=== PATIENT | male | born 1980 | race Caucasian/White ===

== ENCOUNTER 2016-10-08 08:32 | Emergency (ER) | payer OTHER ==
[~2016-10-08] VITALS: Ht 193 cm; Wt 90.7 kg
[~2016-10-08 08:32] MED LIST: ANTIVERT25 MG PO; KEPPRA 500 MG500 M1 PO; LISINOPRIL5 MG PO; MOBIC15 MG PO; PHENERGAN 25 MG25 M1 PO
[2016-10-08 09:27] LABS: ABSOLUTE NEUTROPHILS 9.2 thou/uL (1.4-8.2); BASOPHILS 0.5 % (0.0-2.0); EOSINOPHILS 0.2 % (0.0-3.0); HEMATOCRIT 46.3 % (42.0-52.0); HEMOGLOBIN 16.1 gm/dL (14.0-18.0); LYMPHOCYTES 19.4 % (24.0-44.0); MCH 32.4 pg (26.0-34.0); MCHC 34.8 g/dL (28.0-37.0); MONOCYTES 4.9 % (1.0-8.0); PLATELET COUNT 401 thou/uL (150-400); RBC 4.98 mil/uL (4.50-6.00); RDW 15.1 % (10.5-14.5); WBC 12.2 thou/uL (4.0-11.0)
[2016-10-08 09:33] LABS: MANUAL DIFF NO
[2016-10-08 09:35] LABS: CALCIUM 8.4 mg/dL (8.5-10.1); CREATININE 0.8 mg/dL (0.7-1.3); POTASSIUM 3.5 mmol/L (3.5-5.1)
== END 2016-10-08 10:03 | disposition home or self-care (01) ==
LOC: ER 08:32
PROVIDERS: Emergency Medicine
DX: R56.9 Unspecified convulsions (principal); S00.81XA Abrasion of other part of head, initial encounter; I10 Essential (primary) hypertension; J44.9 Chronic obstructive pulmonary disease, unspecified; F41.9 Anxiety disorder, unspecified; F17.210 Nicotine dependence, cigarettes, uncomplicated; W19.XXXA Unspecified fall, initial encounter; Y93.89 Activity, other specified; Y92.89 Other specified places as the place of occurrence of the external cause; Y99.8 Other external cause status

== ENCOUNTER 2017-05-13 18:33 | Emergency (ER) | payer OTHER ==
[~2017-05-13] VITALS: Ht 193 cm; Wt 90.7 kg
--- NOTE | ~2017-05-13 | EKG ---
[place] [address] [facility] [address] [place] [address] ELECTROCARDIOGRAM REPORT Name: BHAVNA STRONG Room #: [facility] Derek#: [id number] Admission: 05/13/17 Attend Phys: Discharge: 05/13/17 Date of : 84 Report #: [id number] THIS REPORT FOR: //name// [facility] ED Test Date: 2017-05-13 Test Time: 18:40:16 Pat Name: BHAVNA STRONG Department: Room: Gender: Resident Service Coordinator: MZOOK : 1980 Requested By: Tressa Moreno Order Number: [id number] MD: Javier Cheema Measurements Intervals [place] Rate: 110 P: 77 [place]: 172 QRS: 85 QRSD: 84 T: 73 QT: 325 QTc: 440 Interpretive Statements Sinus tachycardia Right atrial enlargement Borderline T wave abnormalities Compared to ECG 03/04/2016 15:58:33 T-wave abnormality now present Electronically Signed On 05-14-2017 9:10:54 WARP BLEACHING VAT TENDER by Javier Cheema [email or web address] <ELECTRONICALLY SIGNED> By: Javier Cheema MD, [facility] 05/14/17 0910 1840 39 Javier Cheema MD, FACC /EPI
[2017-05-13 19:23] LABS: ABSOLUTE NEUTROPHILS 7.3 thou/uL (1.4-8.2); BASOPHILS 0.5 % (0.0-2.0); EOSINOPHILS 0.9 % (0.0-3.0); HEMATOCRIT 47.7 % (42.0-52.0); HEMOGLOBIN 16.6 gm/dL (14.0-18.0); LYMPHOCYTES 33.5 % (24.0-44.0); MCH 32.1 pg (26.0-34.0); MCHC 34.7 g/dL (28.0-37.0); MCV 92.3 fL (80.0-100.0); MONOCYTES 7.6 % (1.0-8.0); PLATELET COUNT 212 thou/uL (150-400); POLYS 57.5 % (36.0-66.0); RBC 5.17 mil/uL (4.50-6.00); RDW 12.5 % (10.5-14.5); WBC 12.6 thou/uL (4.0-11.0)
[2017-05-13 19:24] LABS: MANUAL DIFF NO
[2017-05-13 19:33] LABS: ANION GAP 15 mmol/L (7-16); BUN 13 mg/dL (7-18); CALCIUM 9.2 mg/dL (8.5-10.1); CHLORIDE 101 mmol/L (98-107); CO2 22 mmol/L (21-32); CREATININE 1.1 mg/dL (0.7-1.3); GLUCOSE 73 mg/dL (74-106); POTASSIUM 3.9 mmol/L (3.5-5.1); SODIUM 138 mmol/L (136-145)
[2017-05-13 19:41] LABS: ALBUMIN 4.2 g/dL (3.4-5.0); ALKALINE PHOSPHATASE 65 U/L (46-116); SGOT 22 U/L (15-37); SGPT 26 U/L (30-65); TOTAL BILIRUBIN 0.6 mg/dL (<0.1-1.0); TOTAL PROTEIN 7.7 g/dL (6.4-8.2); TROPONIN-I < 0.04 ng/mL (<0.06)
[2017-05-13] MEDS ORDERED: PREDNISONE 20 M20 MG PO (21:24)
== END 2017-05-13 21:40 | disposition home or self-care (01) ==
LOC: ER 18:33
PROVIDERS: Physician Assistant
DX: J44.1 Chronic obstructive pulmonary disease with (acute) exacerbation (principal); I95.1 Orthostatic hypotension; I10 Essential (primary) hypertension; F41.9 Anxiety disorder, unspecified; F17.210 Nicotine dependence, cigarettes, uncomplicated

== ENCOUNTER 2017-09-16 11:26 | Emergency (ER) | payer OTHER ==
[~2017-09-16] VITALS: Ht 193 cm; Wt 85.3 kg
--- NOTE | ~2017-09-16 | EKG ---
[place] [address] [facility] [place] [address] ELECTROCARDIOGRAM REPORT Name: BHAVNA STRONG Room #: DEP Derek#: [id number] Admission: 09/16/17 Attend Phys: Discharge: 09/16/17 Date of : 84 Report #: [id number] THIS REPORT FOR: //name// [facility] Test Date: 2017-09-16 Test Time: 11:33:37 Pat Name: BHAVNA STRONG Department: Room: Gender: Bridge Rigger: 12 : 1980 Requested By: Kim Valdes Order Number: [id number] MD: Javier Cheema Measurements Intervals [place] Rate: 105 P: 85 MD: 198 QRS: 86 QRSD: 86 T: 80 QT: 339 QTc: 449 Interpretive Statements Sinus tachycardia Baseline wander in lead(s) V2 Compared to ECG 05/13/2017 18:40:16 T-wave abnormality no longer present Electronically Signed On 09-17-2017 8:31:07 CDT by Javier Cheema [email or web address] <ELECTRONICALLY SIGNED> By: Javier Cheema MD, [facility] 09/17/17 0831 D: 04/1132 113 Javier Cheema MD, FACC /EPI
[~2017-09-16 11:26] MED LIST changes: +PREDNISONE 20 M20 MG PO
[2017-09-16 12:03] LABS: ABSOLUTE NEUTROPHILS 4.2 thou/uL (1.4-8.2); BASOPHILS 0.4 % (0.0-2.0); EOSINOPHILS 1.3 % (0.0-3.0); HEMATOCRIT 45.6 % (42.0-52.0); HEMOGLOBIN 15.8 gm/dL (14.0-18.0); LYMPHOCYTES 35.4 % (24.0-44.0); MCH 30.3 pg (26.0-34.0); MCHC 34.6 g/dL (28.0-37.0); MCV 87.6 fL (80.0-100.0); MONOCYTES 9.7 % (1.0-8.0); PLATELET COUNT 199 thou/uL (150-400); POLYS 53.2 % (36.0-66.0); RBC 5.21 mil/uL (4.50-6.00); RDW 12.9 % (10.5-14.5); WBC 7.9 thou/uL (4.0-11.0)
[2017-09-16 13:03] LABS: CALCIUM 8.9 mg/dL (8.5-10.1); CREATININE 1.2 mg/dL (0.7-1.3); POTASSIUM 4.2 mmol/L (3.5-5.1)
[2017-09-16] MEDS ORDERED: PREDNISONE 20 M20 MG PO (13:56)
[2017-09-16] MEDS ORDERED: ZPAK PO (13:56)
== END 2017-09-16 14:33 | disposition home or self-care (01) ==
LOC: ER 11:26
PROVIDERS: Emergency Medicine
DX: J44.1 Chronic obstructive pulmonary disease with (acute) exacerbation (principal); I10 Essential (primary) hypertension; F41.9 Anxiety disorder, unspecified; F17.210 Nicotine dependence, cigarettes, uncomplicated

== ENCOUNTER 2018-05-11 19:37 | Emergency (ER) | payer OTHER ==
[~2018-05-11] VITALS: Ht 193 cm; Wt 81.7 kg
[~2018-05-11 19:37] MED LIST changes: +CLARITIN10 MG PO; +NEURONTIN250 MG/5 M PO; +NORCO 5-325 TA1 EACH PO; +ZPAK PO
[2018-05-11 19:40] VITALS: BP 150/95
[2018-05-11] MEDS ORDERED: FLEXERIL PO (20:10)
[2018-05-11] MEDS ORDERED: IBUPROFEN 800800 M1 PO (20:10)
== END 2018-05-11 20:30 | disposition home or self-care (01) ==
LOC: ER 19:37
DX: S39.012A Strain of muscle, fascia and tendon of lower back, initial encounter (principal); I10 Essential (primary) hypertension; J44.9 Chronic obstructive pulmonary disease, unspecified; F41.9 Anxiety disorder, unspecified; F17.210 Nicotine dependence, cigarettes, uncomplicated; X58.XXXA Exposure to other specified factors, initial encounter; Y93.89 Activity, other specified; Y92.89 Other specified places as the place of occurrence of the external cause; Y99.8 Other external cause status

== ENCOUNTER 2019-01-02 19:22 | Emergency (ER) | payer OTHER ==
[~2019-01-02] VITALS: Ht 193 cm; Wt 83.9 kg
[~2019-01-02 19:22] MED LIST changes: +FLEXERIL PO; +IBUPROFEN 800800 M1 PO
[2019-01-02 19:53] LABS: EOSINOPHILS 0.8 % (0.0-3.0)
[2019-01-02 19:55] LABS: ABSOLUTE NEUTROPHILS 9.6 thou/uL (1.4-8.2); BASOPHILS 0.6 % (0.0-2.0); HEMATOCRIT 44.7 % (42.0-52.0); HEMOGLOBIN 15.7 gm/dL (14.0-18.0); LYMPHOCYTES 22.6 % (24.0-44.0); MCHC 35.2 g/dL (28.0-37.0); MCV 90.9 fL (80.0-100.0); RBC 4.92 mil/uL (4.50-6.00); RDW 13.6 % (10.5-14.5); WBC 16.3 thou/uL (4.0-11.0)
[2019-01-02 20:01] LABS: ANION GAP 11 mmol/L (7-16); BUN 15 mg/dL (7-18); CALCIUM 8.8 mg/dL (8.5-10.1); CHLORIDE 104 mmol/L (98-107); CO2 25 mmol/L (21-32); GLUCOSE 106 mg/dL (74-106); POTASSIUM 4.3 mmol/L (3.5-5.1); SODIUM 140 mmol/L (136-145)
[2019-01-02 20:11] LABS: SGOT 13 U/L (15-37); SGPT 16 U/L (30-65); TOTAL BILIRUBIN 0.3 mg/dL (<0.1-1.0); TOTAL PROTEIN 7.3 g/dL (6.4-8.2); TROPONIN-I <0.06 ng/mL (<0.06)
[2019-01-02 20:15] LABS: PLATELET COUNT 127 thou/uL (150-400)
[2019-01-02] MEDS ORDERED: DOXYCYCLINE 10100 MG PO (21:21)
[2019-01-02] MEDS ORDERED: PREDNISONE 20 M20 MG PO ×2 (21:21→22:16)
[2019-01-02 22:15] VITALS: BP 117/88
[2019-01-02] MEDS ORDERED: LEVAQUIN 500 M500 M2 PO (22:16)
--- NOTE | 2019-01-03 08:25 | EKG ---
[place] [address] [facility] [place] [address] ELECTROCARDIOGRAM REPORT Name: BHAVNA STRONG Room #: [facility] MAE Reed#: [id number] Admission: 01/02/19 Attend Phys: Discharge: 01/02/19 Date of : 84 Report #: [id number] THIS REPORT FOR: //name// 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
== END 2019-01-02 22:27 | disposition home or self-care (01) ==
LOC: ER 19:22
PROVIDERS: Physician Assistant
DX: J44.1 Chronic obstructive pulmonary disease with (acute) exacerbation (principal); F17.210 Nicotine dependence, cigarettes, uncomplicated; I10 Essential (primary) hypertension; F41.9 Anxiety disorder, unspecified

== ENCOUNTER 2019-02-06 18:27 | Emergency (ER) | payer OTHER ==
[~2019-02-06] VITALS: Ht 193 cm; Wt 83.9 kg
[~2019-02-06 18:27] MED LIST changes: +DOXYCYCLINE 10100 MG PO; +LEVAQUIN 500 M500 M2 PO
[2019-02-06 18:58] LABS: BASOPHILS 0.5 % (0.0-2.0); EOSINOPHILS 0.5 % (0.0-3.0); HEMATOCRIT 46.4 % (42.0-52.0); HEMOGLOBIN 15.8 gm/dL (14.0-18.0); LYMPHOCYTES 18.7 % (24.0-44.0); MCH 31.6 pg (26.0-34.0); MCHC 34.1 g/dL (28.0-37.0); MCV 92.9 fL (80.0-100.0); PLATELET COUNT 223 thou/uL (150-400); POLYS 73.3 % (36.0-66.0); RDW 13.7 % (10.5-14.5); WBC 10.9 thou/uL (4.0-11.0)
[2019-02-06 19:12] LABS: ANION GAP 12 mmol/L (7-16); BUN 16 mg/dL (7-18); CALCIUM 9.4 mg/dL (8.5-10.1); CHLORIDE 103 mmol/L (98-107); CO2 25 mmol/L (21-32); CREATININE 1.2 mg/dL (0.7-1.3); GLUCOSE 98 mg/dL (74-106); POTASSIUM 4.2 mmol/L (3.5-5.1); SODIUM 140 mmol/L (136-145)
[2019-02-06 19:21] LABS: TROPONIN-I <0.06 ng/mL (<0.06)
[2019-02-06 19:21] LABS: BE(vivo) -0.6 mmol/L (-2 to +3); HCO3 21.9 mmol/L (22.0-26.0); PCO2 31.1 mmHg (35.0-45.0); PO2 95.3 mmHg (80.0-100.0); pH 7.466 (7.360-7.450); sO2 97.7 % (92.0-98.0)
[2019-02-06] MEDS ORDERED: PREDNISONE 20 M20 MG PO (20:05)
[2019-02-06 20:17] VITALS: BP 121/82
--- NOTE | 2019-02-07 13:04 | EKG ---
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: [facility] : 1980 Requested By: Zach Ruiz Order Number: [id number] MD: Javier Cheema Measurements Intervals [place] Rate: 115 P: 91 AR: 162 QRS: 85 QRSD: 83 T: 55 QT: 321 QTc: 444 Interpretive Statements Sinus tachycardia Poor R wave progression Compared to ECG 01/02/2019 19:37:29 No significant change was found Electronically Signed On 02-07-2019 13:04:19 CDT by Javier Cheema [email or web address] ��������������������������������������������� <ELECTRONICALLY SIGNED> ���������������������������������������� By: Javier Cheema MD, [facility] ��������������������������������������������� 02/07/19 1304 1827 26 Javier Cheema MD, FACC /EPI
== END 2019-02-06 20:18 | disposition home or self-care (01) ==
LOC: ER 18:27
PROVIDERS: Emergency Medicine
DX: J44.1 Chronic obstructive pulmonary disease with (acute) exacerbation (principal); I10 Essential (primary) hypertension; F41.9 Anxiety disorder, unspecified; F17.210 Nicotine dependence, cigarettes, uncomplicated

== ENCOUNTER 2019-04-12 09:27 | Emergency (ER) | payer OTHER ==
[~2019-04-12] VITALS: Ht 193 cm; Wt 83.9 kg
[2019-04-12] MEDS ORDERED: SEROQUEL200 MG PO (09:35)
[2019-04-12] MEDS ORDERED: TRAZODONE 150150 M1 PO (09:35)
[2019-04-12] MEDS ORDERED: SPIRIVA18 MCG INH (09:36)
[2019-04-12] MEDS ORDERED: PROAIR HFA8.5 GM INH (09:36)
[2019-04-12] MEDS ORDERED: ADVAIR 250-501 EACH INH (09:36)
[2019-04-12] MEDS ORDERED: COMBIVENT INH (09:36)
[2019-04-12 09:59] LABS: ABSOLUTE NEUTROPHILS 7.6 thou/uL (1.4-8.2); BASOPHILS 0.7 % (0.0-2.0); EOSINOPHILS 0.4 % (0.0-3.0); HEMATOCRIT 44.3 % (42.0-52.0); LYMPHOCYTES 17.9 % (24.0-44.0); MCH 31.2 pg (26.0-34.0); MCHC 33.9 g/dL (28.0-37.0); MCV 91.9 fL (80.0-100.0); MONOCYTES 5.7 % (1.0-8.0); PLATELET COUNT 210 thou/uL (150-400); POLYS 75.3 % (36.0-66.0); RBC 4.82 mil/uL (4.50-6.00); RDW 13.4 % (10.5-14.5); WBC 10.1 thou/uL (4.0-11.0)
[2019-04-12 10:08] LABS: ANION GAP 10 mmol/L (7-16); BUN 10 mg/dL (7-18); CALCIUM 9.5 mg/dL (8.5-10.1); CHLORIDE 101 mmol/L (98-107); CO2 25 mmol/L (21-32); GLUCOSE 90 mg/dL (74-106); POTASSIUM 4.1 mmol/L (3.5-5.1); SODIUM 136 mmol/L (136-145)
[2019-04-12 10:18] LABS: SGOT 15 U/L (15-37); SGPT 11 U/L (30-65); TOTAL BILIRUBIN 0.2 mg/dL (<0.1-1.0); TOTAL PROTEIN 7.4 g/dL (6.4-8.2); TROPONIN-I <0.06 ng/mL (<0.06)
[2019-04-12] MEDS ORDERED: PREDNISONE 10 M10 M1 PO (12:52)
[2019-04-12] MEDS ORDERED: LEVAQUIN 750 M750 MG PO (12:52)
[2019-04-12 13:14] VITALS: BP 118/70
== END 2019-04-12 13:14 | disposition home or self-care (01) ==
LOC: ER 09:27
PROVIDERS: Emergency Medicine
DX: J18.1 Lobar pneumonia, unspecified organism (principal); J44.9 Chronic obstructive pulmonary disease, unspecified; F41.9 Anxiety disorder, unspecified; I10 Essential (primary) hypertension; F17.210 Nicotine dependence, cigarettes, uncomplicated

== ENCOUNTER 2019-09-14 20:22 | Inpatient (IN) | payer OTHER ==
[~2019-09-14] VITALS: Ht 193 cm; Wt 83.9 kg
[~2019-09-14 20:22] MED LIST changes: +ADVAIR 250-501 EACH INH; +AZITHROMYCIN500 MG PO; +COMBIVENT INH; +LEVAQUIN 750 M750 MG PO; +OSELTAMIVIR PHO75 MG PO; +PREDNISONE 10 M10 M1 PO; +PROAIR HFA8.5 GM INH; +SEROQUEL200 MG PO; +SPIRIVA18 MCG INH; +TRAZODONE 150150 M1 PO
[2019-09-14 20:24] VITALS: BP 145/91
[2019-09-14] MEDS ORDERED: AUGMENTIN 500-1 EACH PO (20:31)
[2019-09-14 21:24] LABS: BASOPHILS 0.5 % (0.0-2.0); EOSINOPHILS 0.2 % (0.0-3.0); HEMATOCRIT 47.2 % (42.0-52.0); LYMPHOCYTES 11.1 % (24.0-44.0); MCH 31.1 pg (26.0-34.0); MCV 91.7 fL (80.0-100.0); MONOCYTES 5.3 % (1.0-8.0); PLATELET COUNT 257 thou/uL (150-400); POLYS 82.9 % (36.0-66.0); RBC 5.14 mil/uL (4.50-6.00); RDW 13.8 % (10.5-14.5); WBC 19.3 thou/uL (4.0-11.0)
[2019-09-14 21:28] LABS: ANION GAP 15 mmol/L (7-16); BUN 10 mg/dL (7-18); CALCIUM 8.8 mg/dL (8.5-10.1); CHLORIDE 101 mmol/L (98-107); CO2 21 mmol/L (21-32); GLUCOSE 105 mg/dL (74-106); POTASSIUM 3.7 mmol/L (3.5-5.1); SODIUM 137 mmol/L (136-145)
[2019-09-14 21:38] LABS: ALBUMIN 4.5 g/dL (3.4-5.0); SGOT 16 U/L (15-37); SGPT 16 U/L (30-65); TOTAL BILIRUBIN 0.9 mg/dL (<0.1-1.0); TOTAL PROTEIN 7.9 g/dL (6.4-8.2); TROPONIN-I <0.06 ng/mL (<0.06)
[2019-09-14 23:49] VITALS: BP 110/68
[2019-09-15 00:15] VITALS: BP 124/78
[2019-09-15 00:44] VITALS: BP 110/73
[2019-09-15 03:48] VITALS: BP 104/64
[2019-09-15 06:12] LABS: HEMATOCRIT 42.4 % (42.0-52.0); HEMOGLOBIN 14.4 gm/dL (14.0-18.0); MCH 31.3 pg (26.0-34.0); MCHC 33.9 g/dL (28.0-37.0); MCV 92.3 fL (80.0-100.0); RBC 4.59 mil/uL (4.50-6.00); RDW 14.3 % (10.5-14.5); WBC 15.5 thou/uL (4.0-11.0)
[2019-09-15 08:52] VITALS: BP 121/82
[2019-09-15 10:59] LABS: CALCIUM 7.8 mg/dL (8.5-10.1); CREATININE 0.9 mg/dL (0.7-1.3); POTASSIUM 4.2 mmol/L (3.5-5.1)
[2019-09-15 14:06] VITALS: BP 128/77
--- NOTE | 2019-09-16 11:48 | EKG ---
[facility] [address] ELECTROCARDIOGRAM REPORT Name: BHAVNA STRONG Room #: 349-I [facility] IN M.R.#: [id number] Admission: 09/14/19 Attend Phys: Thien Singh Discharge: 09/15/19 Date of : 84 Report #: [id number] THIS REPORT FOR: cc: FAM - No family physician/PCP FAM - No family physician/PCP Germán Ortiz MD ~ THIS REPORT FOR: //name// [facility] ED Test Date: 2019-09-14 Test Time: 20:38:40 Pat Name: BHAVNA STRONG Department: Room: [facility] Gender: M Log Data Technician: ALBA : 1980 Requested By: Shahriar Pickett Order Number: [id number] MD: Germán Ortiz Measurements Intervals [place] Rate: 138 P: 88 WA: 145 QRS: 89 QRSD: 95 T: -87 QT: 322 QTc: 488 Interpretive Statements Sinus tachycardia Consider right atrial enlargement Low voltage, precordial leads Borderline repolarization abnormality Compared to ECG 06/14/2019 13:13:32 Low QRS voltage now present Poor R-wave progression no longer present Electronically Signed On 09-16-2019 11:47:15 CDT by Germán Ortiz [email or web address] <ELECTRONICALLY SIGNED> By: Germán Ortiz MD 09/16/19 1147 37 37 Germán Ortiz MD /EPI
== END 2019-09-15 17:44 | disposition left against medical advice (07) | DRG 190 ==
LOC: ER 20:22 → 3W 23:36 → EROBS 23:36 → 3W 09-15 00:17
PROVIDERS: Emergency Medicine; Nurse Practitioner Family; ADMIT Hospitalist
DX: J44.1 Chronic obstructive pulmonary disease with (acute) exacerbation (principal); J96.01 Acute respiratory failure with hypoxia; F10.231 Alcohol dependence with withdrawal delirium; R65.10 Systemic inflammatory response syndrome (SIRS) of non-infectious origin without acute organ dysfunction; F41.9 Anxiety disorder, unspecified; E88.01 Alpha-1-antitrypsin deficiency; F32.9 Major depressive disorder, single episode, unspecified; I10 Essential (primary) hypertension; F17.210 Nicotine dependence, cigarettes, uncomplicated; Z20.828 Contact with and (suspected) exposure to other viral communicable diseases; Z79.899 Other long term (current) drug therapy

== ENCOUNTER 2020-01-30 21:02 | Emergency (ER) | payer OTHER ==
[~2020-01-30] VITALS: Ht 193 cm; Wt 88.5 kg
--- NOTE | ~2020-01-30 | EMS ---
[facility] [address] [place] [address] EMS Patient Care Report Name: BHAVNA STRONG Room #: DEP MAE Reed#: [id number] Admission: 01/30/20 Attend Phys: Discharge: 01/31/20 Date of : 84 Report #: [id number] THIS REPORT FOR: //name// Report Transmitted: 01/31/2020 05:07 EMS Care Summary [place], [place] Incident [id number] @ 01/30/2020 20:31 Incident Location [address] [place] [address] Patient BHAVNA STRONG Male, 39 Years 1980 Patient Address [address] [place] [address] Patient History Chronic Obstructive Pulmonary Disease (COPD),Gastro-Esophageal Reflux Disease (GERD), Patient Allergies No known allergies, Patient Medications Spiriva, Chief Complaint Right flank pain Disposition Transported No Lights/[place] Dispatch Reason Back Pain (Non-Traumatic) Transported To [facility] Narrative Called for back pain. Upon arrival, P30 on the scene. Pt was BURK x 3 sitting in his chair with a breathing tx going for his COPD. He said he has right flank pain that started earlier today and is getting worse. He had collected a [facility] [address] [place] [address] EMS Patient Care Report Name: BHAVNA STRONG Room #: DEP Derek#: [id number] Admission: 01/30/20 Attend Phys: Discharge: 01/31/20 Date of : 84 Report #: [id number] urine sample and it was brown in color. He requested transport to [facility] ER for further eval & tx. He was assisted to the EMS cot and loaded into the ambulance w/o incident. O2 cont. Vitals obtained x 2. En route: no changes. RR to ER. Arrived: pt taken to ER HW bed and moved w/o incident. Pt care & report to ER staff. Initial Vitals @20:49P: 92,R: 28,BP: 141/88,Pain: 10/10,GCS: 15,CO: 3,SpO2: 96,Revised Trauma: 12, @20:45P: 108,R: 24,BP: 133/88,Pain: 10/10,GCS: 15,SpO2: 94,Revised Trauma: 12, Assessments @20:39MENTAL:SKIN:HEENT:LUNG SOUNDS:ABDOMEN:PELVIS//GI:EXTREMITIES:PULSE:NEURO: Impression Back Pain Procedures @20:51StretcherResponse: Unchanged@20:39ALS AssessmentResponse: UnchangedSucceeded@PTAOxygen FlowRate: 3 Device: Nasal Cannula (NC) Response: UnchangedSucceeded Timeline BEEF SKINNER,Oxygen FlowRate: 3 Device: Nasal Cannula (NC) Response: UnchangedSucceeded, 20:28,Call Received 20:28,Dispatch Notified 20:31,Dispatched 20:32,En Route 20:38,On Scene 20:39,At Patient 20:39,ALS Assessment,Response: UnchangedSucceeded, 20:45,BP: 133/88 M,PULSE: 108,RR: 24 R,SPO2: 94 Ox,ETCO2: ,BG: ,PAIN: 10,GCS: 15, 20:45,Depart Scene 20:49,BP: 141/88 M,PULSE: 92,RR: 28 R,SPO2: 96 Ox,ETCO2: ,BG: ,PAIN: 10,GCS: 15, 20:51,Stretcher,Response: Unchanged 20:57,At Destination 21:11,Call Closed Disclaimer v1.1 Copyright 2020 [employer] This EMS Care Summary contains data elements from the applicable legal record (which may be displayed differently). It is designed to provide pertinent information for the following purposes: continuity of care, clinical quality, [address] [address] EMS Patient Care Report Name: BHAVNA STRONG Room #: DEP Derek#: [id number] Admission: 01/30/20 Attend Phys: Discharge: 01/31/20 Date of : 84 Report #: [id number] and state data reporting. The complete legal record is available to ED staff and administrators of the receiving hospital in ES's Patient Tracker. All data is provided "as is."
[~2020-01-30 21:02] MED LIST changes: +AUGMENTIN 500-1 EACH PO
[2020-01-30 21:41] LABS: ABSOLUTE NEUTROPHILS 9.7 thou/uL (1.4-8.2); BASOPHILS 0.6 % (0.0-2.0); EOSINOPHILS 0.1 % (0.0-3.0); HEMATOCRIT 44.5 % (42.0-52.0); HEMOGLOBIN 15.6 gm/dL (14.0-18.0); LYMPHOCYTES 19.7 % (24.0-44.0); MCHC 35.2 g/dL (28.0-37.0); MCV 91.1 fL (80.0-100.0); MONOCYTES 7.8 % (1.0-8.0); PLATELET COUNT 257 thou/uL (150-400); POLYS 71.8 % (36.0-66.0); RBC 4.88 mil/uL (4.50-6.00); RDW 14.1 % (10.5-14.5); WBC 13.4 thou/uL (4.0-11.0)
[2020-01-30 21:44] LABS: CALCIUM 8.6 mg/dL (8.5-10.1); CREATININE 1.2 mg/dL (0.7-1.3); POTASSIUM 3.7 mmol/L (3.5-5.1)
[2020-01-30 21:50] LABS: TOTAL BILIRUBIN 0.3 mg/dL (0.2-1.0); TOTAL PROTEIN 7.4 g/dL (6.4-8.2)
[2020-01-30] MEDS ORDERED: WIXELA 250-501 EACH INH (22:54)
[2020-01-30] MEDS ORDERED: PREDNISONE 5 MG5 M1 PO (22:56)
[2020-01-31 00:59] LABS: URINE BILIRUBIN NEGATIVE (Negative); URINE BLOOD 3+ (Negative); URINE CLARITY CLEAR; URINE COLOR YELLOW; URINE GLUCOSE-RANDOM* NEGATIVE (Negative); URINE KETONES NEGATIVE (Negative); URINE LEUKOCYTES-REFLEX NEGATIVE (Negative); URINE NITRITE-REFLEX NEGATIVE (Negative); URINE PROTEIN (DIPSTICK) NEGATIVE (Negative); URINE UROBILINOGEN 0.2 E.U./dl (0.2-1.0)
[2020-01-31] MEDS ORDERED: PERCOCET 5-3251 EACH PO (01:02)
[2020-01-31] MEDS ORDERED: ZOFRAN ODT4 MG PO (01:02)
[2020-01-31 01:07] LABS: BACTERIA-REFLEX 1-9 Few /HPF (None Seen); CASTS None Seen /LPF (None Seen); CRYSTALS None Seen /LPF (None Seen); MUCUS 0-3 Light strn/LPF (None Seen); SQUAMOUS 0-3 Few /LPF (0-3); URINE WBC-REFLEX 0-5 Rare /HPF (0-5)
[2020-01-31 01:15] VITALS: BP 107/79
== END 2020-01-31 01:16 | disposition home or self-care (01) ==
LOC: ER 21:02
PROVIDERS: Emergency Medicine
DX: N23 Unspecified renal colic (principal); F17.210 Nicotine dependence, cigarettes, uncomplicated; Z79.899 Other long term (current) drug therapy

== ENCOUNTER 2020-09-08 21:19 | Emergency (ER) | payer OTHER ==
[~2020-09-08] VITALS: Ht 193 cm; Wt 95.3 kg
[~2020-09-08 21:19] MED LIST changes: +PERCOCET 5-3251 EACH PO; +PREDNISONE 5 MG5 M1 PO; +WIXELA 250-501 EACH INH; +ZOFRAN ODT4 MG PO
[2020-09-08 21:22] VITALS: BP 169/108
[2020-09-08] MEDS ORDERED: CHANTIX0.5 MG PO (21:41)
[2020-09-08] MEDS ORDERED: ALPRAZOLAM1 MG PO (21:42)
[2020-09-08] MEDS ORDERED: HYDROXYZINE HCL50 MG PO (21:42)
[2020-09-08] MEDS ORDERED: XANAX1 MG PO (22:20)
== END 2020-09-08 22:39 | disposition home or self-care (01) ==
LOC: ER 21:19
DX: F41.9 Anxiety disorder, unspecified (principal); F32.9 Major depressive disorder, single episode, unspecified; J44.9 Chronic obstructive pulmonary disease, unspecified; I10 Essential (primary) hypertension; F17.210 Nicotine dependence, cigarettes, uncomplicated; Z87.442 Personal history of urinary calculi; Z79.899 Other long term (current) drug therapy

== ENCOUNTER 2020-11-07 09:30 | Emergency (ER) | payer OTHER ==
[~2020-11-07] VITALS: Ht 193 cm; Wt 90.7 kg
[~2020-11-07 09:30] MED LIST changes: +ALPRAZOLAM1 MG PO; +CHANTIX0.5 MG PO; +HYDROXYZINE HCL50 MG PO; +XANAX1 MG PO
[2020-11-07 10:02] LABS: ABSOLUTE NEUTROPHILS 8.6 thou/uL (1.4-8.2); BASOPHILS 0.4 % (0.0-2.0); EOSINOPHILS 0.5 % (0.0-3.0); HEMATOCRIT 51.2 % (42.0-52.0); HEMOGLOBIN 17.8 gm/dL (14.0-18.0); LYMPHOCYTES 18.3 % (24.0-44.0); MCH 30.8 pg (26.0-34.0); MCHC 34.7 g/dL (28.0-37.0); MCV 88.8 fL (80.0-100.0); MONOCYTES 9.4 % (1.0-8.0); PLATELET COUNT 283 thou/uL (150-400); POLYS 71.4 % (36.0-66.0); RBC 5.77 mil/uL (4.50-6.00); RDW 14.1 % (10.5-14.5)
[2020-11-07 10:15] LABS: CREATININE 1.1 mg/dL (0.7-1.3)
[2020-11-07 10:21] LABS: ALBUMIN 4.2 g/dL (3.4-5.0); TOTAL BILIRUBIN 0.5 mg/dL (0.2-1.0)
--- NOTE | 2020-11-07 10:27 | EKG ---
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 : 1980 Requested By: Berta Ch Order Number: [id number] MD: Yossi Tucker Measurements Intervals [place] Rate: 129 P: 79 TN: 154 QRS: 78 QRSD: 75 T: 8 QT: 331 QTc: 485 Interpretive Statements Sinus tachycardia Borderline repolarization abnormality Borderline prolonged QT interval Compared to ECG 09/14/2019 20:38:40 No significant changes Electronically Signed On 11-07-2020 10:27:36 CDT by Yossi Tucker [email or web address] <ELECTRONICALLY SIGNED> By: Yossi Tucker MD, [facility] 11/07/20 1027 0939 0939 Yossi Tucker MD, FACC /EPI
[2020-11-07] MEDS ORDERED: ZOFRAN ODT4 MG PO (13:36)
[2020-11-07] MEDS ORDERED: AZITHROMYCIN 2250 MG PO (13:36)
[2020-11-07] MEDS ORDERED: XANAX 1 MG TABLE1 MG PO (13:36)
[2020-11-07 14:14] VITALS: BP 149/104
== END 2020-11-07 14:15 | disposition home or self-care (01) ==
LOC: ER 09:30
PROVIDERS: Emergency Medicine
DX: J18.9 Pneumonia, unspecified organism (principal); F13.239 Sedative, hypnotic or anxiolytic dependence with withdrawal, unspecified; E86.0 Dehydration; R11.2 Nausea with vomiting, unspecified; I10 Essential (primary) hypertension; F32.9 Major depressive disorder, single episode, unspecified; F17.210 Nicotine dependence, cigarettes, uncomplicated; Z79.899 Other long term (current) drug therapy; Z87.442 Personal history of urinary calculi

== ENCOUNTER 2020-12-10 13:48 | Emergency (ER) | payer OTHER ==
[~2020-12-10] VITALS: Ht 193 cm; Wt 84.8 kg
[~2020-12-10 13:48] MED LIST changes: +AZITHROMYCIN 2250 MG PO; +XANAX 1 MG TABLE1 MG PO
[2020-12-10] MEDS ORDERED: ATIVAN1 M1 PO (15:34)
[2020-12-10] MEDS ORDERED: ALPRAZOLAM ER1 MG PO (15:36)
[2020-12-10 15:43] VITALS: BP 137/105
== END 2020-12-10 15:44 | disposition home or self-care (01) ==
LOC: ER 13:48
DX: F41.9 Anxiety disorder, unspecified (principal); J44.9 Chronic obstructive pulmonary disease, unspecified; F32.9 Major depressive disorder, single episode, unspecified; I10 Essential (primary) hypertension; F17.210 Nicotine dependence, cigarettes, uncomplicated; Z79.899 Other long term (current) drug therapy

== ENCOUNTER 2020-12-25 21:01 | Emergency (ER) | payer OTHER ==
[~2020-12-25] VITALS: Ht 193 cm; Wt 84.8 kg
[~2020-12-25 21:01] MED LIST changes: +ALPRAZOLAM ER1 MG PO; +ATIVAN1 M1 PO
[2020-12-25 21:05] VITALS: BP 146/94
== END 2020-12-25 21:26 | disposition home or self-care (01) ==
LOC: ER 21:01
DX: F41.9 Anxiety disorder, unspecified (principal); J44.9 Chronic obstructive pulmonary disease, unspecified; I10 Essential (primary) hypertension; F32.9 Major depressive disorder, single episode, unspecified; F17.210 Nicotine dependence, cigarettes, uncomplicated; Z79.891 Long term (current) use of opiate analgesic; Z79.899 Other long term (current) drug therapy

== ENCOUNTER 2021-01-02 19:18 | Inpatient (IN) | payer OTHER ==
[~2021-01-02] VITALS: Ht 193 cm; Wt 68.5 kg
--- NOTE | ~2021-01-02 | EMS ---
[place] [address] EMS Patient Care Report Name: BHAVNA STRONG Room #: 463-P ADM IN M.R.#: [id number] Admission: 01/02/21 Attend Phys: Joce Horton MD Discharge: Date of : 84 Report #: [id number] THIS REPORT FOR: //name// Report Transmitted: 01/04/2021 13:12 EMS Care Summary [place], [place]/[facility] Incident [id number] @ 01/02/2021 18:25 Incident Location [address] [place] [address] Patient SEAN STRONG Male, 40 Years 1980 Patient Address [address] [place], [place] [id number] Patient History Other,Chronic Obstructive Pulmonary Disease (COPD),Anxiety, Patient Allergies No known allergies, Patient Medications Ventolin, Other, Colace, Xanax, Chief Complaint SOA Disposition Transported No Lights/[place] Dispatch Reason Breathing Problem Transported To [facility] Narrative PT IS FOUND AT HOME W P30 ON SCENE. P30 INFORMS US THAT PT IS HAVING DIFFICULTY BREATHING AND HAS A PMH OF COPD. PT HAS BEEN HAVING DIFFICULTY ALL DAY. PT HAS TAKEN "THREE" BREATHING TREATMENTS WEIGHT SHIFTER. PT'S VITALS ARE ELEVATED. PT REQUESTS TRANSPORTATION TO [facility]. WE HELP PT ONTO COT AND SEAT BELT IN. [facility] [address] [place] [address] EMS Patient Care Report Name: BHAVNA STRONG Room #: 463-P ADM IN M.R.#: [id number] Admission: 01/02/21 Attend Phys: Joce Horton MD Discharge: Date of : 84 Report #: [id number] MOVE COT TO UNIT AND SECURE IN BACK. REASSESS PT STATUS AND VITALS. ADMINISTER 10LPM OF O2 VIA NRB. ATTACH BP CUFF, EKG AND PULSE OX TO PT. I GAIN IV ACCESS W 18 GAUGE SL IN LAC AND ACQUIRE D-STICK OFF OF IV. CONTINUE TO MONITOR PT STATUS AND VITALS EN ROUTE. TRANSFER OF CARE W RN AT [facility], PT STABLE PER VITALS. Initial Vitals @18:51P: 132,CO: 3,SpO2: 96, @18:59P: 137,BP: 125/93,SpO2: 95, @18:54P: 133,R: 24,BP: 138/100,Pain: 2/10,GCS: 15,Glucose: 100,SpO2: 94,Revised Trauma: 12, @18:44P: 137,R: 26,BP: 153/98,Pain: 2/10,GCS: 15,CO: 3,SpO2: 95,Revised Trauma: 12, Assessments @18:52MENTAL:Event Oriented,Place Oriented,Time Oriented,Person Oriented,SKIN:HEENT:Head/Face: No Abnormalities,Neck/Airway: No Abnormalities,LUNG SOUNDS:ABDOMEN:PELVIS//GI:EXTREMITIES:PULSE:NEURO:No Abnormalities, Impression Respiratory disorder Procedures @18:51Normal Saline (.9% NaCl) 10cc (18 ga) Site: Antecubital-LeftResponse: UnchangedSucceeded Timeline 18:24,Call Received 18:24,Dispatch Notified 18:25,Dispatched 18:26,En Route 18:39,On Scene 18:40,At Patient 18:44,BP: 153/98 M,PULSE: 137,RR: 26 R,SPO2: 95 Ox,ETCO2: ,BG: ,PAIN: 2,GCS: 15, 18:49,Depart Scene 18:51,BP: / M,PULSE: 132,RR: R,SPO2: 96 Ox,ETCO2: ,BG: ,PAIN: ,GCS: , 18:51,Normal Saline (.9% NaCl) 10cc 18 ga Site: Antecubital-Left,Response: UnchangedSucceeded, 18:54,BP: 138/100 M,PULSE: 133,RR: 24 R,SPO2: 94 Ox,ETCO2: ,B,PAIN: 2,GCS: 15, 18:59,BP: 125/93 M,PULSE: 137,RR: R,SPO2: 95 Ox,ETCO2: ,BG: ,PAIN: ,GCS: , 19:00,At Destination 19:27,Call Closed Disclaimer [address] [address] EMS Patient Care Report Name: BHAVNA STRONG Room #: 463-P ADM IN M.R.#: [id number] Admission: 01/02/21 Attend Phys: Joce Horton MD Discharge: Date of : 84 Report #: [id number] v1.1 Copyright 2020 [employer] This EMS Care Summary contains data elements from the applicable legal record (which may be displayed differently). It is designed to provide pertinent information for the following purposes: continuity of care, clinical quality, and state data reporting. The complete legal record is available to ED staff and administrators of the receiving hospital in [email or web address]'s Patient Tracker. All data is provided "as is."
[2021-01-02 19:21] VITALS: BP 145/101
[2021-01-02] MEDS ORDERED: FLUOXETINE HCL60 MG PO (19:27)
[2021-01-02] MEDS ORDERED: ZYPREXA 5 MG TAB5 M1 PO (19:27)
[2021-01-02] MEDS ORDERED: MONTELUKAST SODI4 M1 PO (19:28)
[2021-01-02 19:45] LABS: BE(vivo) -1.9 mmol/L (-2 to +3); HCO3 20.5 mmol/L (22.0-26.0); PCO2 29.8 mmHg (35.0-45.0); PO2 76.7 mmHg (80.0-100.0); pH 7.456 (7.360-7.450); sO2 96.1 % (92.0-98.0)
[2021-01-02 20:04] LABS: ABSOLUTE NEUTROPHILS 10.5 thou/uL (1.4-8.2); BASOPHILS 0.6 % (0.0-2.0); EOSINOPHILS 0.1 % (0.0-3.0); HEMATOCRIT 46.9 % (42.0-52.0); HEMOGLOBIN 16.2 gm/dL (14.0-18.0); LYMPHOCYTES 11.9 % (24.0-44.0); MCH 31.2 pg (26.0-34.0); MCHC 34.6 g/dL (28.0-37.0); MCV 90.1 fL (80.0-100.0); MONOCYTES 5.5 % (1.0-8.0); PLATELET COUNT 218 thou/uL (150-400); POLYS 81.9 % (36.0-66.0); RBC 5.21 mil/uL (4.50-6.00); RDW 14.2 % (10.5-14.5); WBC 12.9 thou/uL (4.0-11.0)
[2021-01-02 20:16] LABS: ANION GAP 13 mmol/L (7-16); BUN 7 mg/dL (7-18); CALCIUM 9.3 mg/dL (8.5-10.1); CHLORIDE 104 mmol/L (98-107); CO2 22 mmol/L (21-32); CREATININE 1.1 mg/dL (0.7-1.3); GLUCOSE 97 mg/dL (74-106); POTASSIUM 3.5 mmol/L (3.5-5.1); SODIUM 139 mmol/L (136-145)
[2021-01-02 20:27] LABS: ALBUMIN 4.2 g/dL (3.4-5.0); SGOT 13 U/L (15-37); SGPT 20 U/L (16-63); TOTAL BILIRUBIN 0.4 mg/dL (0.2-1.0); TOTAL PROTEIN 7.6 g/dL (6.4-8.2); TROPONIN-I <0.06 ng/mL (<0.06)
[2021-01-02] MEDS ORDERED: OMEPRAZOLE 20 M20 M1 PO (22:49)
[2021-01-02] MEDS ORDERED: LORAZEPAM 1 MG T1 MG PO (22:55)
[2021-01-03] VITALS (7 sets, daily range): BP systolic 102–150; BP diastolic 39–97
[2021-01-03] MEDS ORDERED: NICOTINE PATCH1 EAC2 TOP (00:48)
[2021-01-03] MEDS ORDERED: CHLORPROMAZINE100 MG PO (00:50)
[2021-01-03 04:04] LABS: CALCIUM 8.8 mg/dL (8.5-10.1)
[2021-01-03 04:06] LABS: POTASSIUM 4.9 mmol/L (3.5-5.1)
[2021-01-03 04:15] LABS: HEMATOCRIT 46.1 % (42.0-52.0); HEMOGLOBIN 15.7 gm/dL (14.0-18.0); MCV 91.2 fL (80.0-100.0); RBC 5.06 mil/uL (4.50-6.00); RDW 14.2 % (10.5-14.5); WBC 5.2 thou/uL (4.0-11.0)
--- NOTE | 2021-01-03 13:59 | EKG ---
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
--- NOTE | 2021-01-03 17:28 | NUR ---
Received pt from the ER, on 3L of O2 via NC. Alert and oriented x 4. states he gets anxious andthagt is his major problem along with his sob. Claims that he has stopped smoking for a while now and has been loosing weight since he has modified his diet. POC followed with no sings or verbalixations of distress will continue to monitor.
--- NOTE | 2021-01-04 06:31 | NUR ---
patient aox4 makes needs known. patient is on 3l of oxygen no soa or distress noted. patient had high anxiety prn ativan given per drRamona order. patient uses urinal at night. patient in bed asleep at this time breathing regular and unlaboured
[2021-01-04 07:55] VITALS: BP 131/89
[2021-01-04] MEDS ORDERED: DOXYCYCLINE 10100 M2 PO (09:49)
[2021-01-04] MEDS ORDERED: LORAZEPAM 1 MG T1 MG PO (09:49)
[2021-01-04 11:10] VITALS: BP 131/89
--- NOTE | 2021-01-04 15:47 | NUR ---
Assumed pt care this am, SOB has resolved but maintained 3L of O2 via NC, VS stable. Diet and medications are tolerated well. POC followed with no signs or verbalizations of distress noted. DC instructions given to the pt, prescriptions were sent to the pharmacy. IV removed, pt hsa been picked up by spouse. Pt is now DC.
== END 2021-01-04 15:52 | disposition home or self-care (01) | DRG 189 ==
LOC: ER 19:18 → EROBS 22:03 → 4W 01-03 13:53
PROVIDERS: Emergency Medicine; Nurse Practitioner Family; ADMIT Hospitalist; ATTEND Hospitalist
DX: J96.21 Acute and chronic respiratory failure with hypoxia (principal); J44.1 Chronic obstructive pulmonary disease with (acute) exacerbation; F32.9 Major depressive disorder, single episode, unspecified; G47.00 Insomnia, unspecified; F12.90 Cannabis use, unspecified, uncomplicated; F41.9 Anxiety disorder, unspecified; Z20.822 Contact with and (suspected) exposure to COVID-19; I10 Essential (primary) hypertension; K21.9 Gastro-esophageal reflux disease without esophagitis; R79.89 Other specified abnormal findings of blood chemistry; Z71.6 Tobacco abuse counseling; Z87.442 Personal history of urinary calculi; Z87.891 Personal history of nicotine dependence
CPT/HCPCS: 10045

== ENCOUNTER 2021-01-31 17:16 | Emergency (ER) | payer OTHER ==
[~2021-01-31 17:16] MED LIST changes: +CHLORPROMAZINE100 MG PO; +DOXYCYCLINE 10100 M2 PO; +FLUOXETINE HCL60 MG PO; +LORAZEPAM 1 MG T1 MG PO; +MONTELUKAST SODI4 M1 PO; +NICOTINE PATCH1 EAC2 TOP; +OMEPRAZOLE 20 M20 M1 PO; +ZYPREXA 5 MG TAB5 M1 PO
[2021-01-31 20:04] VITALS: BP 134/89
== END 2021-01-31 20:10 | disposition home or self-care (01) ==
LOC: ER 17:16
DX: F41.9 Anxiety disorder, unspecified (principal); K21.9 Gastro-esophageal reflux disease without esophagitis; J44.9 Chronic obstructive pulmonary disease, unspecified; I10 Essential (primary) hypertension; F32.9 Major depressive disorder, single episode, unspecified; F17.210 Nicotine dependence, cigarettes, uncomplicated; Z79.899 Other long term (current) drug therapy

== ENCOUNTER 2021-02-04 12:13 | Inpatient (IN) | payer OTHER ==
[~2021-02-04] VITALS: Ht 193 cm; Wt 78.0 kg
--- NOTE | ~2021-02-04 | EMS ---
[place] [address] EMS Patient Care Report Name: BHAVNA STRONG Room #: 170-10 ADM IN M.R.#: [id number] Admission: 02/04/21 Attend Phys: Marty Lorenzo MD Discharge: Date of : 84 Report #: [id number] THIS REPORT FOR: //name// Report Transmitted: 02/04/2021 13:41 EMS Care Summary [place], [place]/[facility] Incident [id number] @ 02/04/2021 11:42 Incident Location [address] [place], [place] [id number] Patient SEAN STRONG Male, 40 Years 1980 Patient Address [address] [place], [place] [phone] Patient History Other,Chronic Obstructive Pulmonary Disease (COPD),Anxiety, Patient Allergies No known allergies, Patient Medications Other, Colace, Xanax, Ventolin, Chief Complaint alcohol withdrawals Disposition Transported No Lights/[place] Dispatch Reason Breathing Problem Transported To [facility] Narrative M36 dispatched on a breathing problems. M36 arrived to find PT seated in wheelchair in driveway of home. PT stated alcohol withdrawals as chief complaint. PT stated additional complaint of shortness of breath. PT stated recent exposure to testing positive for COVID-19 and [place] [address] EMS Patient Care Report Name: BHAVNA STRONG Room #: 170-10 ADM IN [facility]#: [id number] Admission: 02/04/21 Attend Phys: Marty Lorenzo MD Discharge: Date of : 84 Report #: [id number] of same home. PT stated additional complaints of abdominal pain, nausea, vomiting and headache. PT stated he "has received first dose of COVID vaccine and am due for my second dose." PT assisted to stand and pivot from wheelchair to stretcher. Surgical mask placed on PT. PT switched from oxygen condenser to EMS oxygen. PT secured with seatbelts. PT vitals monitored during transport. PT report given. PT moved to hospital bed via three person sheet lift. PT care and belongings transferred to ER staff at [facility] without incident. M36 placed back in service. Initial Vitals @12:01P: 134,SpO2: 95, @12:03P: 131,CO: 16,SpO2: 96, @12:04P: 130,R: 20,BP: 148/106,Pain: 10/10,GCS: 15,SpO2: 96,Revised Trauma: 12, @11:59P: 132,R: 22,BP: 146/110,Pain: 10/10,GCS: 15,SpO2: 93,Revised Trauma: 12, Assessments @11:57MENTAL:Person Oriented,Event Oriented,Time Oriented,Place Oriented,SKIN:Pale,HEENT:Head/Face: Drainage,LUNG SOUNDS:Right Lower: Tenderness,Right Upper: Tenderness,Left Lower: Tenderness,General: Nausea,Left Upper: Tenderness,General: Vomiting,ABDOMEN:Right Lower: Tenderness,Right Upper: Tenderness,Left Lower: Tenderness,General: Nausea,Left Upper: Tenderness,General: Vomiting,PELVIS//GI:EXTREMITIES:PULSE:Radial: 2+ Normal,NEURO:Other,@12:07MENTAL:Person Oriented,Time Oriented,Event Oriented,Place Oriented,SKIN:Pale,HEENT:Head/Face: Drainage,LUNG SOUNDS:ABDOMEN:PELVIS//GI:EXTREMITIES:PULSE:NEURO: Impression Alcohol dependence with withdrawal Procedures @11:56ALS AssessmentResponse: UnchangedSucceeded@PTAOxygen FlowRate: 4 Device: Nasal Cannula (NC) Response: UnchangedSucceeded Timeline COLLEGE ADVISOR,Oxygen FlowRate: 4 Device: Nasal Cannula (NC) Response: UnchangedSucceeded, 11:41,Call Received 11:41,Dispatch Notified 11:42,Dispatched 11:42,En Route 11:48,On Scene 11:48,At Patient 11:56,ALS Assessment,Response: UnchangedSucceeded, 11:57,Depart Scene 11:59,BP: 146/110 M,PULSE: 132,RR: 22 R,SPO2: 93 Ox,ETCO2: ,BG: ,PAIN: 10,GCS: 15, [address] [address] EMS Patient Care Report Name: AMRITA STRONGMAE Ceballos Room #: 170-10 ADM IN .R.#: [id number] Admission: 02/04/21 Attend Phys: Marty Lorenzo MD Discharge: Date of : 84 Report #: [id number] 12:01,BP: / M,PULSE: 134,RR: R,SPO2: 95 Ox,ETCO2: ,BG: ,PAIN: ,GCS: , 12:03,BP: / M,PULSE: 131,RR: R,SPO2: 96 Ox,ETCO2: ,BG: ,PAIN: ,GCS: , 12:04,BP: 148/106 M,PULSE: 130,RR: 20 R,SPO2: 96 Ox,ETCO2: ,BG: ,PAIN: 10,GCS: 15, 12:10,At Destination 12:19,Call Closed Disclaimer v1.1 Copyright 2020 [employer] This EMS Care Summary contains data elements from the applicable legal record (which may be displayed differently). It is designed to provide pertinent information for the following purposes: continuity of care, clinical quality, and state data reporting. The complete legal record is available to ED staff and administrators of the receiving hospital in [employer]'s Patient Tracker. All data is provided "as is."
[2021-02-04 12:14] VITALS: BP 133/108
--- NOTE | 2021-02-04 12:21 | NUR ---
SEIZURE PADS IN PLACE FOR PT SAFETY. LAST DRINK SOMETIME LAST NIGHT 02/03/21. PT STATES HE USES A WHEELCHAIR TO GET AROUND D/T COPD. PT DENIES RECENT FALLS
[2021-02-04 12:58] LABS: ABSOLUTE NEUTROPHILS 15.5 thou/uL (1.4-8.2); BASOPHILS 0.2 % (0.0-2.0); HEMATOCRIT 51.4 % (42.0-52.0); HEMOGLOBIN 16.8 gm/dL (14.0-18.0); MCH 30.1 pg (26.0-34.0); MCHC 32.7 g/dL (28.0-37.0); MONOCYTES 6.2 % (1.0-8.0); PLATELET COUNT 319 thou/uL (150-400); POLYS 84.6 % (36.0-66.0); RBC 5.58 mil/uL (4.50-6.00); RDW 14.9 % (10.5-14.5); WBC 18.3 thou/uL (4.0-11.0)
[2021-02-04 13:15] LABS: CALCIUM 9.4 mg/dL (8.5-10.1); CREATININE 1.2 mg/dL (0.7-1.3); POTASSIUM 5.5 mmol/L (3.5-5.1)
[2021-02-04 13:23] LABS: ALBUMIN 4.4 g/dL (3.4-5.0); DIRECT BILIRUBIN 0.1 mg/dL (<0.1-0.2); TOTAL BILIRUBIN 0.3 mg/dL (0.2-1.0); TOTAL PROTEIN 8.4 g/dL (6.4-8.2)
[2021-02-04 17:13] LABS: HCO3 15.4 mmol/L (22.0-26.0); PCO2 30.2 mmHg (35.0-45.0); PO2 91.5 mmHg (80.0-100.0); sO2 96.6 % (92.0-98.0)
[2021-02-04 17:13] LABS: URINE BILIRUBIN NEGATIVE (Negative); URINE BLOOD 1+ (Negative); URINE CLARITY CLEAR; URINE COLOR YELLOW; URINE GLUCOSE-RANDOM* NEGATIVE (Negative); URINE KETONES 2+ (Negative); URINE LEUKOCYTES NEGATIVE (Negative); URINE NITRITE NEGATIVE (Negative); URINE PROTEIN (DIPSTICK) TRACE (Negative); URINE SPECIFIC GRAVITY >= 1.030 (1.005-1.035); URINE UROBILINOGEN 0.2 E.U./dl (0.2-1.0)
[2021-02-04 17:14] LABS: pH 7.326 (7.360-7.450)
[2021-02-04 17:20] LABS: FOLIC ACID 2.7 ng/mL (8.6-58.9)
[2021-02-04 17:28] LABS: BACTERIA None Seen /HPF (None Seen); SQUAMOUS 0-3 Few /LPF (0-3); URINE RBC 1-2 Rare /HPF (NONE SEEN); URINE WBC 1-5 Rare /HPF (NONE SEEN)
[2021-02-04 17:47] LABS: AMP/METHAMP Negative (Negative); BARBITURATES Negative (Negative); BENZODIAZEPINES Negative (Negative); COCAINE Negative (Negative); METHADONE Negative (Negative); OPIATES Negative (Negative); PCP Negative (Negative)
[2021-02-04 18:05] LABS: MAGNESIUM 1.9 mg/dL (1.8-2.4); PHOSPHORUS 4.8 mg/dL (2.6-4.7)
[2021-02-04 21:05] VITALS: BP 121/80
[2021-02-04 21:36] VITALS: BP 147/88
[2021-02-05 00:45] VITALS: BP 111/58
--- NOTE | 2021-02-05 01:10 | NUR ---
PT ARRIVED FROM ER. COMPLETED ADMISSION, MED REC, INTERVENTIONS AND CAREPLAN. PT ON 6L VIA SD. ALL CONSULTS HAVE BEEN CALLED. ETOH AND COVID POC STARTED. PT HAS HAD 0NE DOSE OF OF THE VACCINE. IS AT HOME WITH THE VID ALSO, 2 CHILDREN IN HOUSE 17YR OLD AND 10YR OLD ARE S/S FREE SO FAR.
[2021-02-05 05:05] LABS: ABSOLUTE NEUTROPHILS 7.3 thou/uL (1.4-8.2); BASOPHILS 0.2 % (0.0-2.0); HEMATOCRIT 42.7 % (42.0-52.0); LYMPHOCYTES 13.8 % (24.0-44.0); MCH 31.9 pg (26.0-34.0); MCHC 35.1 g/dL (28.0-37.0); MCV 91.1 fL (80.0-100.0); MONOCYTES 11.5 % (1.0-8.0); POLYS 74.5 % (36.0-66.0); RBC 4.69 mil/uL (4.50-6.00); RDW 14.3 % (10.5-14.5); WBC 9.8 thou/uL (4.0-11.0)
[2021-02-05 05:14] VITALS: BP 145/95
[2021-02-05 05:17] LABS: ALBUMIN 3.5 g/dL (3.4-5.0); CALCIUM 8.3 mg/dL (8.5-10.1); CREATININE 1.1 mg/dL (0.7-1.3); DIRECT BILIRUBIN 0.1 mg/dL (<0.1-0.2); POTASSIUM 5.1 mmol/L (3.5-5.1); TOTAL BILIRUBIN 0.4 mg/dL (0.2-1.0); TOTAL PROTEIN 6.2 g/dL (6.4-8.2)
[2021-02-05 05:41] LABS: PLATELET COUNT 226 thou/uL (150-400)
[2021-02-05 05:50] LABS: CALCIUM 8.5 mg/dL (8.5-10.1); CREATININE 1.1 mg/dL (0.7-1.3); POTASSIUM 4.9 mmol/L (3.5-5.1)
[2021-02-05 07:42] VITALS: BP 119/84
--- NOTE | 2021-02-05 09:22 | EKG ---
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 : 1980 Requested By: Cristian Taylor Order Number: [id number] MD: Yossi Tucker Measurements Intervals [place] Rate: 129 P: 86 WI: 148 QRS: 87 QRSD: 90 T: 64 QT: 312 QTc: 458 Interpretive Statements Sinus tachycardia Low voltage, precordial leads Compared to ECG 01/02/2021 20:27:55 Low QRS voltage now present Prolonged QT interval no longer present Electronically Signed On 02-05-2021 9:22:12 CDT by Yossi Tucker [email or web address] <ELECTRONICALLY SIGNED> By: Yossi Tucker MD, [facility] 02/05/21921 17 Yossi Tucker MD, [facility] /EPI
[2021-02-05 15:48] VITALS: BP 129/86
[2021-02-05 19:30] VITALS: BP 147/91
[2021-02-06 04:38] LABS: D-DIMER 0.56 ug/mLFEU (0.19-0.50); INR 1.09; PROTIME 11.8 Seconds (10.5-12.1)
[2021-02-06 05:00] VITALS: BP 95/65
[2021-02-06 05:16] LABS: ABSOLUTE NEUTROPHILS 7.2 thou/uL (1.4-8.2); BASOPHILS 0.1 % (0.0-2.0); HEMATOCRIT 41.2 % (42.0-52.0); HEMOGLOBIN 14.5 gm/dL (14.0-18.0); LYMPHOCYTES 13.4 % (24.0-44.0); MCH 31.5 pg (26.0-34.0); MCHC 35.1 g/dL (28.0-37.0); PLATELET COUNT 206 thou/uL (150-400); POLYS 77.5 % (36.0-66.0); RBC 4.58 mil/uL (4.50-6.00); RDW 14.3 % (10.5-14.5); WBC 9.3 thou/uL (4.0-11.0)
[2021-02-06 05:43] LABS: ALBUMIN 3.4 g/dL (3.4-5.0); CALCIUM 8.1 mg/dL (8.5-10.1); CREATININE 0.9 mg/dL (0.7-1.3); DIRECT BILIRUBIN 0.2 mg/dL (<0.1-0.2); PHOSPHORUS 2.7 mg/dL (2.5-4.9); TOTAL BILIRUBIN 0.4 mg/dL (0.2-1.0); TOTAL PROTEIN 5.9 g/dL (6.4-8.2)
[2021-02-06 05:50] LABS: PROCALCITONIN 0.35 ng/mL (<0.50)
[2021-02-06 05:57] LABS: POTASSIUM 3.9 mmol/L (3.5-5.1)
[2021-02-06 07:52] VITALS: BP 90/60
--- NOTE | 2021-02-06 08:04 | NUR ---
PT VSS OVERNIGHT AND POC WITH IVF AND IVPB ANTIBIOTICS. CIWA Q4 AT 11. PT STATES HE IS HAVING INTERMENT NAUSEA. ZOFRAN GIVEN WITH GOOD SUCCESS. HOURLY ROUNDING.
--- NOTE | 2021-02-06 15:32 | NUR ---
INITIAL ASSESSMENT: Received consult. RODOLFO reviewed chart and spoke with nursing and attending physician. Pt was admitted from home due to COVID. Pt placed in Enhanced Isolation. Pt has received the [employer] COVID vaccination. Pt is afebrile and on 2L of O2. PT is on IV abx, IV steroids and Remdesivir. Discharge home is anticipated in 1-2 days. RODOLFO spoke with pt via phone. Introduced role of SW. Pt is alert/orientated x 4. Pt reports he lives at home with his and children, who also have COVID. Prior to admission, pt was independent with ADLs. Pt does have a walker to use if needed. Pt has home O2 through [employer] and is normally on 2L continuously. PT/OT are working with pt for any discharge needs. No hx of services or post-acute placement. Pt's PCP is Dr. Suzy Malave with [facility]. Pt states he was started on a new medication today that is causing nausea/vomiting. Pt asked SW to notify attending physician. SW sent message to attending physician and BUSINESS PLANNING MANAGER. Plan is for pt to discharge home when medically stable. RODOLFO is following to assist as needed with discharge planning.
[2021-02-06 16:03] VITALS: BP 122/74
--- NOTE | 2021-02-06 18:24 | NUR ---
ASSUMED PATIENT CARE AT 0700. A/O X4. CIW X2. ANXIOUS. C/O NAUSEA. SLOWLY TOWARDS POC GOALS.
[2021-02-06 19:24] VITALS: BP 116/87
[2021-02-07 00:06] LABS: HIV ANTIBODY Non Reactive (Non Reactive)
--- NOTE | 2021-02-07 04:16 | NUR ---
Patient progressing towards outcome goals. Vital signs and rhythm stable. Oxygenation optimal on 2L/NC baseline for patient. Patient CIWA 1-4, refusing Librium, states it upsets his stomah. Lorazepam given. Calls out appropriately for needs.
[2021-02-07 04:30] VITALS: BP 130/80
[2021-02-07 04:45] VITALS: BP 126/76
[2021-02-07 04:51] LABS: ABSOLUTE NEUTROPHILS 8.2 thou/uL (1.4-8.2); BASOPHILS 0.1 % (0.0-2.0); HEMATOCRIT 43.3 % (42.0-52.0); HEMOGLOBIN 15.2 gm/dL (14.0-18.0); LYMPHOCYTES 20.3 % (24.0-44.0); MCH 31.2 pg (26.0-34.0); MCV 89.1 fL (80.0-100.0); MONOCYTES 8.3 % (1.0-8.0); PLATELET COUNT 198 thou/uL (150-400); POLYS 71.3 % (36.0-66.0); RBC 4.86 mil/uL (4.50-6.00); RDW 14.1 % (10.5-14.5); WBC 11.5 thou/uL (4.0-11.0)
[2021-02-07 05:30] LABS: ALBUMIN 3.4 g/dL (3.4-5.0); CALCIUM 8.3 mg/dL (8.5-10.1); CREATININE 0.9 mg/dL (0.7-1.3); DIRECT BILIRUBIN 0.1 mg/dL (<0.1-0.2); PHOSPHORUS 2.9 mg/dL (2.5-4.9); POTASSIUM 3.5 mmol/L (3.5-5.1); TOTAL BILIRUBIN 0.5 mg/dL (0.2-1.0); TOTAL PROTEIN 6.4 g/dL (6.4-8.2)
[2021-02-07 07:10] VITALS: BP 96/65
[2021-02-07 11:39] VITALS: BP 104/75
--- NOTE | 2021-02-07 14:41 | NUR ---
SW reviewed chart and spoke with nursing and attending physician. Pt remains in Enhanced Isolation due to COVID. Pt is afebrile and on 2L of O2. Pt is on IV abx, IV steroids and IV lasix. Pt will complete course of Remdesivir tomorrow. Discharge home is anticipated for tomorrow. SW spoke with pt via phone to discuss discharge plan. Pt is aware and in agreement with plan. Pt has home O2 in place. Pt states his family should be able to provide transportation home. Should pt need a cab ride home, housekeeping assistant to be contacted for cab voucher. No SW discharge needs identified at this time. SW is available to assist should needs arise.
[2021-02-07 15:57] VITALS: BP 100/71
[2021-02-07 19:39] VITALS: BP 109/79
--- NOTE | 2021-02-07 19:40 | NUR ---
ASSUMED PATIENT CARE AT 0700. A/O X4. TOLERATED ON 2L/NC. CIW X2. PROGRESSING TOWARDS POC GOALS.
[2021-02-08 05:14] VITALS: BP 95/53
[2021-02-08 05:44] LABS: ALBUMIN 3.3 g/dL (3.4-5.0); CALCIUM 8.2 mg/dL (8.5-10.1); CREATININE 0.9 mg/dL (0.7-1.3); DIRECT BILIRUBIN 0.1 mg/dL (<0.1-0.2); PHOSPHORUS 3.2 mg/dL (2.5-4.9); POTASSIUM 3.2 mmol/L (3.5-5.1); TOTAL BILIRUBIN 0.5 mg/dL (0.2-1.0); TOTAL PROTEIN 6.2 g/dL (6.4-8.2)
--- NOTE | 2021-02-08 06:08 | NUR ---
PROGRESS PT A/O X4, UP AD RISSA. VOIDING QS. O2 AT 3 LITERS VIA NC LUNGS DIMINISHED BUT DENIES SOB. VOIDING QS. CIWA AT 1 AND 1 MG ATIVAN GIVEN FOR GENERALIZED ANXIETY WITH EFFECT. PT SLEPT ALL NIGHT. LAST DOSE OF REMDESIVIR ADMINISTERED ORDERED PT TOLERATED WELL. PLANS TO DC HOME WITH FAMILY CARE. WEARS OME O2 AND HAS ALL NEEDED SUPPLIES AT HOME.
[2021-02-08 07:28] VITALS: BP 95/59
[2021-02-08] MEDS ORDERED: DOXYCYCLINE HYC50 MG PO (10:35)
[2021-02-08] MEDS ORDERED: LORAZEPAM 1 MG T1 MG PO (10:36)
[2021-02-08] MEDS ORDERED: PREDNISONE 20 M20 MG PO (10:37)
[2021-02-08] MEDS ORDERED: ASPIR-TRIN325 MG PO (10:38)
[2021-02-08 13:28] VITALS: BP 95/59
[2021-02-08 15:10] VITALS: BP 111/75
--- NOTE | 2021-02-08 16:29 | NUR ---
RN ASSUMED PT'S CARE AT 0700AM, PT IS A&OX4, PT IS ON O2 2L/MIN/NC, PT'S VS AND O2SAT ARE STABLE, PT DNEIS SOB AND PAIN BY THIS TIME, PT'S CIWA ASSESS IS 2-3 , RN RECEIVED DR TO DC PT TO HOME TODAY, PT FINISHES HIS LAST DOSE IV REMDESIVIR AT THIS TIME, PT UNDERSTANDS DC TEACHING WELL, INCLUDING FOLLOW WITH DR, MEDICATIONS, COVID ISOLATION UNTILL 02/27/21, PT'S WILL AMBULANCE DISPATCHER PT TO HOME ABOUT 1700PM.
--- NOTE | 2021-02-08 17:17 | NUR ---
3W USE W/C TO SEND PT TO ER FRONT DOOR TO MEET PT'S , PT IS HAPPY WITH CARE AT [facility]. PT'S WIFR HAMMERER HELPER TO HOME AT 1715PM.
[2021-02-09 08:49] LABS: T-SPOT.TB Negative
== END 2021-02-08 17:16 | disposition home or self-care (01) | DRG 871 ==
LOC: ER 12:13 → 3W 14:39 → EROBS 14:39 → 3W 21:05
PROVIDERS: Emergency Medicine; Specialist; ADMIT Internal Medicine; ATTEND Internal Medicine
PROC: XW033E5 Introduction of Remdesivir Anti-infective into Peripheral Vein, Percutaneous Approach, New Technology Group 5 (ICD-10-PCS; principal; 2021-02-05)
DX: A41.89 Other specified sepsis (principal); U07.1 COVID-19; J96.21 Acute and chronic respiratory failure with hypoxia; J12.82 Pneumonia due to coronavirus disease 2019; F10.239 Alcohol dependence with withdrawal, unspecified; J44.0 Chronic obstructive pulmonary disease with (acute) lower respiratory infection; J44.1 Chronic obstructive pulmonary disease with (acute) exacerbation; Z79.899 Other long term (current) drug therapy; N20.0 Calculus of kidney; F41.9 Anxiety disorder, unspecified; F32.9 Major depressive disorder, single episode, unspecified; K21.9 Gastro-esophageal reflux disease without esophagitis; Z87.891 Personal history of nicotine dependence; E88.01 Alpha-1-antitrypsin deficiency
CPT/HCPCS: 10879

== ENCOUNTER 2021-03-04 16:27 | Inpatient (IN) | payer OTHER ==
[~2021-03-04] VITALS: Ht 193 cm; Wt 79.6 kg
[~2021-03-04 16:27] MED LIST changes: +ASPIR-TRIN325 MG PO; +DOXYCYCLINE HYC50 MG PO; -FLUOXETINE HCL60 MG PO; +PROZAC40 MG PO
[2021-03-04 16:39] VITALS: BP 120/78
[2021-03-04 17:58] LABS: URINE BILIRUBIN NEGATIVE (Negative); URINE BLOOD NEGATIVE (Negative); URINE CLARITY CLEAR; URINE COLOR STRAW; URINE GLUCOSE-RANDOM* NEGATIVE (Negative); URINE KETONES NEGATIVE (Negative); URINE LEUKOCYTES-REFLEX NEGATIVE (Negative); URINE NITRITE-REFLEX NEGATIVE (Negative); URINE PROTEIN (DIPSTICK) NEGATIVE (Negative); URINE SPECIFIC GRAVITY <= 1.005 (1.005-1.035); URINE UROBILINOGEN 0.2 E.U./dl (0.2-1.0)
[2021-03-04 17:58] LABS: ABSOLUTE NEUTROPHILS 11.7 thou/uL (1.4-8.2); BASOPHILS 0.5 % (0.0-2.0); EOSINOPHILS 0.4 % (0.0-3.0); HEMATOCRIT 48.1 % (42.0-52.0); HEMOGLOBIN 16.5 gm/dL (14.0-18.0); LYMPHOCYTES 16.8 % (24.0-44.0); MCH 31.2 pg (26.0-34.0); MCHC 34.3 g/dL (28.0-37.0); MCV 90.9 fL (80.0-100.0); MONOCYTES 6.8 % (1.0-8.0); PLATELET COUNT 297 thou/uL (150-400); POLYS 75.5 % (36.0-66.0); RBC 5.29 mil/uL (4.50-6.00); RDW 15.3 % (10.5-14.5); WBC 15.5 thou/uL (4.0-11.0)
[2021-03-04 18:18] LABS: CALCIUM 8.6 mg/dL (8.5-10.1); CREATININE 0.9 mg/dL (0.7-1.3); POTASSIUM 3.8 mmol/L (3.5-5.1)
[2021-03-04 18:24] LABS: ALBUMIN 3.9 g/dL (3.4-5.0); MAGNESIUM 2.1 mg/dL (1.8-2.4); TOTAL BILIRUBIN 0.3 mg/dL (0.2-1.0); TOTAL PROTEIN 7.3 g/dL (6.4-8.2)
[2021-03-04 21:39] VITALS: BP 133/89
[2021-03-04 22:16] VITALS: BP 100/64
[2021-03-04 22:34] VITALS: BP 144/100
[2021-03-05 03:13] VITALS: BP 119/82
--- NOTE | 2021-03-05 06:50 | EKG ---
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 : 1980 Requested By: Cristian Taylor Order Number: [id number] MD: Yossi Tucker Measurements Intervals [place] Rate: 128 P: 76 NE: 141 QRS: 81 QRSD: 75 T: -74 QT: 375 QTc: 548 Interpretive Statements Sinus tachycardia Consider right atrial enlargement Borderline T abnormalities, inferior leads Artifact in lead(s) I,III,aVR,aVL,aVF,V1,V2,V3,V4,V5,V6 and baseline wander in lead(s) V3 Compared to ECG 02/04/2021 12:18:45 T-wave abnormality now present Electronically Signed On 03-05-2021 6:50:02 CDT by Yossi Tucker [email or web address] <ELECTRONICALLY SIGNED> By: Yossi Tucker MD, FACC 03/05/21 0650 [id number] [id number] Yossi Tucker MD, FACC /EPI
[2021-03-05 07:15] VITALS: BP 116/89
--- NOTE | 2021-03-05 08:14 | NUR ---
PT MAKING PROGRESS TOWARDS GOALS. C/O HEADACHE. TREATED WIT TYLENOL. DENIES HEADACHE THIS MORNING. HAS DENIED ANY NAUSEA OVERNIGHT.
[2021-03-05 10:01] LABS: HEMATOCRIT 43.2 % (42.0-52.0); HEMOGLOBIN 14.6 gm/dL (14.0-18.0); MCH 30.8 pg (26.0-34.0); MCHC 33.7 g/dL (28.0-37.0); MCV 91.3 fL (80.0-100.0); RBC 4.73 mil/uL (4.50-6.00); RDW 15.2 % (10.5-14.5); WBC 10.8 thou/uL (4.0-11.0)
[2021-03-05 10:22] LABS: CALCIUM 8.6 mg/dL (8.5-10.1); MAGNESIUM 1.7 mg/dL (1.8-2.4); POTASSIUM 3.8 mmol/L (3.5-5.1)
--- NOTE | 2021-03-05 15:19 | NUR ---
Initial assessment: CM reviewed chart and spoke the the nurse. Pt is a frequent flyer and was recently her in 2020. Pt is back d/t ETOH w/drawal. Vaccinated for COVID. CM role introduced, alert and oriented x 4 and pleasant. has emphasized that we wants to get better and was open to have information for support groups outside of the hospital. Currently uses a walker at home and a wheelchair when goes out. Uses O2 at home at 2 liters via NC. Currently steps located outside his home is now a ramp thus no steps are present, and children live with the pt and are his support groups. Pt is still on CIWA protocol. CM to follow this case.
[2021-03-05 15:45] VITALS: BP 125/85
--- NOTE | 2021-03-05 19:26 | NUR ---
RN ASSUMED PT'S CARE AT 0700-1900PM , PT IS A&OX4, PT'S CIWA IS 2-10, P'S ETOH WITHDRAWAL S/S CAN CONTROL BY MEDICATIONS PER ORDER, PT CAN EAT SOME FOOD ,PT IS ON O2 3L/MIN/NC, PT'S VS ARE STABLE AT DAY SHIFT.
[2021-03-05 19:38] VITALS: BP 122/80
[2021-03-05 20:00] VITALS: BP 122/80
[2021-03-06 00:58] LABS: BE(vivo) -2.9 mmol/L (-2 to +3); HCO3 21.7 mmol/L (22.0-26.0); PCO2 37.5 mmHg (35.0-45.0); PO2 84.2 mmHg (80.0-100.0); pH 7.381 (7.360-7.450); sO2 96.2 % (92.0-98.0)
[2021-03-06 04:14] VITALS: BP 92/55
[2021-03-06 06:30] LABS: ALBUMIN 3.3 g/dL (3.4-5.0); CALCIUM 8.4 mg/dL (8.5-10.1); MAGNESIUM 2.7 mg/dL (1.8-2.4); POTASSIUM 4.3 mmol/L (3.5-5.1); TOTAL BILIRUBIN 0.5 mg/dL (0.2-1.0); TOTAL PROTEIN 6.2 g/dL (6.4-8.2)
[2021-03-06 07:18] VITALS: BP 92/59
--- NOTE | 2021-03-06 07:20 | NUR ---
PT IS SLOWLY PROGRESSING TOWARD HIS GOALS. DURING INITIAL ASSESSMENT, PT PLEASANT AND COOPERATIVE WITH MINIMAL S/SX OF WITHDRAWAL. EXPIRATORY WHEEZES NOTED ON INITIAL EXAM, SINUS TACH WITH HR IN THE 120'S. PT WAS MEDICATED WITH ATIVAN X2 THROUGHOUT THE NIGHT-ONCE FOR GENERALIZED ANXIETY/AGITATION AND AGAIN PER [facility] PROTOCOL (SEE CHARTING). OVERNIGHT, PT BEGAN TO EXPERIENCE A SUDDEN ONSET DIFFICULTY BREATHING/SOA AND INCREASED TACHYCARDIA WITH HR IN THE 130'S. OB GYN PHYSICIAN ASSISTANT NOTIFIED, RECEIVED NEW ORDERS FOR PRN DUONEBS, STAT ABG'S, CHEST X-RAY, AND 1X DOSE OF SOLUMEDROL IV. O2 WAS TITRATED TO 6L. AFTER BREATHING TREATMENT AND SOLUMEDROL, PT VOICED RELIEF AND WAS ABLE TO SLEEP FOR THE REMAINDER OF THE NIGHT. ABG WITH NO SIGNIFICANT FINDINGS, CXR SHOWED MILD INTERSTITIAL EDEMA. [facility]
--- NOTE | 2021-03-06 15:28 | NUR ---
SW reviewed chart and spoke with nursing and attending physician. Pt is progressing towards goals for discharge. Discharge home is anticipated in 1-2 days. Pt has home O2 in place at home through [employer] and is normally on 3L. Plan is for pt to discharge home when medically stable. RODOLFO is following to assist as needed with discharge planning.
[2021-03-06 15:50] VITALS: BP 106/73
--- NOTE | 2021-03-06 17:38 | NUR ---
RN ASSUMED PT'S CARE AT 0700AM, PT IS A&OX4, PT IS ON O2 3L/MIN/NC , PT STILL HAS SOB WITH ACTIVITIES, PT'S VS ARE STABLE, PT'S ETOH WITHDRAWAL S/S HAVE IMPROVED, PT'S ANXIETY CAN CONTROL PER MEDICATIONS, PT'S EATING HAS IMPROVED TOO, PT GETS UP TO BATH ROOM WITH ASSIST.PT'S VS ARE STABLE AT DAY SHIFT.
[2021-03-06 19:12] VITALS: BP 132/86
[2021-03-07 03:48] VITALS: BP 115/86
[2021-03-07 07:46] VITALS: BP 112/78
--- NOTE | 2021-03-07 08:12 | NUR ---
PT MAKING SLOW PROGRESS TOWARDS GOALS. DID ASK FOR ATIVAN X1 LAST NIGHT. GIVEN BY JEOVANY MOLINA. PT HAD REPORTED FEELING ANXIOUS. CALM AND ABLE TO SLEEP OVERNIGHT WITHOUT ANY OBSERVABLE DISTRESS.
[2021-03-07] MEDS ORDERED: A THRU Z ADVAN1 EAC1 PO (11:39)
[2021-03-07 13:10] VITALS: BP 112/78
--- NOTE | 2021-03-07 13:25 | NUR ---
DISCHARGE NOTE: SW reviewed chart and spoke with nursing and attending physician. Pt is medically stable for discharge home today. SW met with pt at bedside to discuss discharge plan. Pt is aware and in agreement with discharge plan. Pt has home O2 in place through [employer]. No HH needs at this time. SW offered to provide pt with ETOH treatment resources. Pt declines offer and states that he knows how to manage his ETOH consumption. Pt's family to provide transportation home. No SW needs identified at this time. SW is available to assist should needs arise.
--- NOTE | 2021-03-07 15:43 | NUR ---
PROGRESSING TOWARDS POC GOALS, DC TO [facility].
== END 2021-03-07 15:20 | disposition home or self-care (01) | DRG 896 ==
LOC: ER 16:27 → 3W 19:36 → EROBS 19:36 → 3W 22:18
PROVIDERS: Emergency Medicine; Nurse Practitioner Family; ADMIT Internal Medicine; ATTEND Internal Medicine
DX: F10.129 Alcohol abuse with intoxication, unspecified (principal); R65.11 Systemic inflammatory response syndrome (SIRS) of non-infectious origin with acute organ dysfunction; J96.20 Acute and chronic respiratory failure, unspecified whether with hypoxia or hypercapnia; F10.139 Alcohol abuse with withdrawal, unspecified; Z20.822 Contact with and (suspected) exposure to COVID-19; K21.9 Gastro-esophageal reflux disease without esophagitis; I10 Essential (primary) hypertension; G47.00 Insomnia, unspecified; J44.9 Chronic obstructive pulmonary disease, unspecified; F32.9 Major depressive disorder, single episode, unspecified; F41.9 Anxiety disorder, unspecified; E88.01 Alpha-1-antitrypsin deficiency; Z87.442 Personal history of urinary calculi; Z87.891 Personal history of nicotine dependence; Z79.899 Other long term (current) drug therapy
CPT/HCPCS: 10879

== ENCOUNTER 2021-03-15 11:41 | Emergency (ER) | payer OTHER ==
[~2021-03-15] VITALS: Ht 182.9 cm; Wt 83.9 kg
--- NOTE | ~2021-03-15 | EMS ---
[place] [address] EMS Patient Care Report Name: BHAVNA STRONG Room #: DEP MAE Reed#: [id number] Admission: 03/15/21 Attend Phys: Discharge: 03/15/21 Date of : 84 Report #: [id number] THIS REPORT FOR: //name// Report Transmitted: 03/17/2021 10:51 EMS Care Summary [place], [place]/[facility] Incident [id number] @ 03/15/2021 11:08 Incident Location [address] [place], [place] [id number] Patient BHAVNA RAMIREZ Male, 40 Years 1980 Patient Address [address] [place] [address] Patient History Chronic Obstructive Pulmonary Disease (COPD),Depression,Anxiety,Alcohol Abuse, Patient Allergies No known allergies, Patient Medications Buspirone, Albuterol, Advair, Omeprazole, Chief Complaint visual hallucinations Disposition Transported No Lights/[place] Dispatch Reason Sick Person Transported To [facility] Narrative 40 y/o male with alcohol withdrawal EMS dispatched to a residence for a person having alcohol withdrawals Upon arrival the pt was lying on the couch with his home O2 on. Pt has copd. The [address] [address] EMS Patient Care Report Name: BHAVNA STRONG Room #: DEP ER Derek#: [id number] Admission: 03/15/21 Attend Phys: Discharge: 03/15/21 Date of : 84 Report #: [id number] pt states he drank a liter of vodka yesterday his last drink was 12 hours ago and for the last 5 hours has been hurting all over and experiencing visual hallucinations. the pt put his slides on and ambulated to the ambulance on his own with a steady gait. The pt was SOA and the cot was pulled out of the ambulance for the pt. He sat on the cot in a position of comfort, was secured to the cot, and loaded into the ambulance. VS were obtained. IV access was attempted x 1 and was unsuccessful. We arrived at [facility] a second attempt was not made. The pt was transported to [place] with out incident or changes with the pt during transport. Pt was taken to room 11. EMS returned to service. Initial Vitals @11:24BP: 153/109,SpO2: 91, @11:23P: 128,R: 18,BP: 164/117,Pain: 10/10,GCS: 15,CO: 2,SpO2: 94,Revised Trauma: 12, Assessments @11:29MENTAL:Event Oriented,Time Oriented,Place Oriented,Person Oriented,SKIN:HEENT:Head/Face: No Abnormalities,Neck/Airway: No Abnormalities,LUNG SOUNDS:General: No Abnormalities,ABDOMEN:General: No Abnormalities,PELVIS//GI:No Abnormalities,EXTREMITIES:Capillary Refill: Right Upper: < 2 Sec,Capillary Refill: Left Upper: < 2 Sec,Left Arm: No Abnormalities,Right Arm: No Abnormalities,Left Leg: No Abnormalities,Right Leg: No Abnormalities,PULSE:Radial: 2+ Normal,NEURO:No Abnormalities, Impression Alcohol dependence with withdrawal Procedures @11:27 ALS Assessment Response: UnchangedSucceeded Timeline 11:05,Call Received 11:05,Dispatch Notified 11:08,Dispatched 11:08,En Route 11:16,On Scene 11:17,At Patient 11:23,BP: 164/117 M,PULSE: 128,RR: 18 R,SPO2: 94 Ox,ETCO2: ,BG: ,PAIN: 10,GCS: 15, 11:24,BP: 153/109 M,PULSE: ,RR: R,SPO2: 91 Ox,ETCO2: ,BG: ,PAIN: ,GCS: , 11:25,Depart Scene 11:27,ALS Assessment,Response: UnchangedSucceeded, 11:47,At Destination 11:55,Call Closed [address] [address] EMS Patient Care Report Name: BHAVNA STRONG Room #: DEP Derek#: [id number] Admission: 03/15/21 Attend Phys: Discharge: 03/15/21 Date of : 84 Report #: [id number] Disclaimer v1.1 Copyright 2020 [email or web address] This EMS Care Summary contains data elements from the applicable legal record (which may be displayed differently). It is designed to provide pertinent information for the following purposes: continuity of care, clinical quality, and state data reporting. The complete legal record is available to ED staff and administrators of the receiving hospital in [facility]'s Patient Tracker. All data is provided "as is."
[~2021-03-15 11:41] MED LIST changes: +A THRU Z ADVAN1 EAC1 PO
[2021-03-15] MEDS ORDERED: PROLASTIN1000 MG/20 IV (11:49)
[2021-03-15] MEDS ORDERED: BUSPIRONE HCL15 MG PO (11:50)
[2021-03-15 12:48] LABS: ABSOLUTE NEUTROPHILS 9.1 thou/uL (1.4-8.2); BASOPHILS 0.4 % (0.0-2.0); EOSINOPHILS 0.2 % (0.0-3.0); HEMATOCRIT 44.2 % (42.0-52.0); HEMOGLOBIN 15.1 gm/dL (14.0-18.0); LYMPHOCYTES 16.3 % (24.0-44.0); MCH 31.3 pg (26.0-34.0); MCHC 34.3 g/dL (28.0-37.0); MCV 91.2 fL (80.0-100.0); MONOCYTES 9.1 % (1.0-8.0); PLATELET COUNT 280 thou/uL (150-400); RBC 4.84 mil/uL (4.50-6.00); WBC 12.3 thou/uL (4.0-11.0)
[2021-03-15 12:53] LABS: CALCIUM 8.7 mg/dL (8.5-10.1); CREATININE 0.9 mg/dL (0.7-1.3); POTASSIUM 3.8 mmol/L (3.5-5.1)
[2021-03-15 13:00] LABS: ALBUMIN 3.7 g/dL (3.4-5.0); TOTAL BILIRUBIN 0.3 mg/dL (0.2-1.0)
[2021-03-15 13:34] VITALS: BP 124/84
--- NOTE | 2021-03-16 07:36 | EKG ---
[place] [address] [facility] [email or web address] [address] ELECTROCARDIOGRAM REPORT Name: BHAVNA STRONG [facility] [id number] Admission: 03/15/21 Attend Phys: Discharge: 03/15/21 Date of : 84 Report #: [id number] [facility] ED Test Date: 2021-03-15 Test Time: 11:42:57 Pat Name: BHAVNA STRONG Department: Room: Gender: Tie Fastener: : 1980 Requested By: Steven Carlisle Order Number: [id number] MD: Yossi Tucker Measurements Intervals [place] Rate: 125 P: 118 [place]: 98 QRS: 86 QRSD: 80 T: 264 QT: 359 QTc: 518 Interpretive Statements Sinus tachycardia Borderline repolarization abnormality Baseline wander in lead(s) V2 Compared to ECG 03/04/2021 16:38:11 T-wave abnormality no longer present Electronically Signed On 03-16-2021 7:36:03 CDT by Yossi Tucker [email or web address] <ELECTRONICALLY SIGNED> By: Yossi Tucker MD, [facility] 03/16/21 0736 1142 Yossi Tucker MD, FACC /EPI
[2021-03-16] MEDS ORDERED: ATIVAN1 M1 PO (11:53)
== END 2021-03-15 13:38 | disposition home or self-care (01) ==
LOC: ER 11:41
PROVIDERS: Emergency Medicine
DX: F10.10 Alcohol abuse, uncomplicated (principal); Y90.9 Presence of alcohol in blood, level not specified; K21.9 Gastro-esophageal reflux disease without esophagitis; J44.9 Chronic obstructive pulmonary disease, unspecified; I10 Essential (primary) hypertension; F32.9 Major depressive disorder, single episode, unspecified; F41.9 Anxiety disorder, unspecified; F17.210 Nicotine dependence, cigarettes, uncomplicated; Z79.899 Other long term (current) drug therapy

== ENCOUNTER 2021-03-16 10:06 | Emergency (ER) | payer OTHER ==
[~2021-03-16] VITALS: Ht 182.9 cm; Wt 83.9 kg
--- NOTE | ~2021-03-16 | EMS ---
[place] [address] EMS Patient Care Report Name: BHAVNA STRONG Room #: DEP MAE Reed#: [id number] Admission: 03/16/21 Attend Phys: Discharge: 03/16/21 Date of : 84 Report #: [id number] THIS REPORT FOR: //name// Report Transmitted: 03/17/2021 10:51 EMS Care Summary [place], [place]/[facility] Incident [id number] @ 03/16/2021 09:33 Incident Location [address] [place], [place] [id number] Patient SEAN STRONG Male, 40 Years 1980 Patient Address [address] [place], [place] [phone] Patient History Other,Chronic Obstructive Pulmonary Disease (COPD),Depression,Anxiety,Alcohol Abuse, Patient Allergies No known allergies, Patient Medications Oxygen, Xanax, Ventolin, Other, Colace, Chief Complaint ANXIETY/ETOH WITHDRAWAL Disposition Transported No Lights/[place] Dispatch Reason Breathing Problem Transported To [facility] Narrative UPON ARRIVAL WE FOUND OUR 40 YEAR OLD FEMALE PATIENT, WITH A HX OF COPD AND ETOH ABUSE, SITTING IN THE FRONT ROOM OF A RESIDENCE ON HOME O2 COMPLAINING OF SEVERE ANXIETY DUE TO ETOH WITHDRAWAL. THE PATIENT [place] [address] EMS Patient Care Report Name: BHAVNA STRONG Room #: DEP LachelleRamona#: [id number] Admission: 03/16/21 Attend Phys: Discharge: 03/16/21 Date of : 84 Report #: [id number] DRINK IN 2 DAYS AND HE NORMALLY CONSUMES 1 LITER OF VODKA PER DAY. THE PATIENT STATES HE WAS SEEN AT THE [facility] YESTERDAY AND WAS GIVEN ATIVAN. THE PATIENT REQUESTS TRANSPORT BACK TO [facility] FOR EVALUATION. Initial Vitals @09:46P: 132, @09:43P: 133,SpO2: 90, @09:44P: 131,R: 20,BP: 149/91,Pain: 0/10,GCS: 15,SpO2: 93,Revised Trauma: 12,SD Suspected: false @09:58P: 112,R: 18,BP: 144/88,Pain: 0/10,GCS: 15,SpO2: 93,Revised Trauma: 12, Assessments @09:41MENTAL:Time Oriented,Place Oriented,Person Oriented,Event Oriented,Other,SKIN:HEENT:Eyes: Right Pupil: 4-mm,Eyes: Left Pupil: 4-mm,Head/Face: No Abnormalities,Neck/Airway: No Abnormalities,LUNG SOUNDS:General: No Abnormalities,ABDOMEN:General: No Abnormalities,PELVIS//GI:No Abnormalities,EXTREMITIES:Left Arm: No Abnormalities,Right Arm: No Abnormalities,Left Leg: No Abnormalities,Right Leg: No Abnormalities,PULSE:Radial: 2+ Normal,NEURO:Tremors, Impression Alcohol dependence with withdrawal Procedures @09:41 ALS Assessment Response: UnchangedSucceeded @09:42 Oxygen FlowRate: 2 Device: Nasal Cannula (NC) Response: UnchangedSucceeded @09:43 3-Lead ECG Response: UnchangedSucceeded Timeline 09:31,Call Received 09:31,Dispatch Notified 09:33,Dispatched 09:35,En Route 09:40,On Scene 09:41,At Patient 09:41,ALS Assessment,Response: UnchangedSucceeded, 09:42,Oxygen FlowRate: 2 Device: Nasal Cannula (NC) Response: UnchangedSucceeded, 09:43,3-Lead ECG,Response: UnchangedSucceeded, 09:43,BP: / M,PULSE: 133,RR: R,SPO2: 90 Ox,ETCO2: ,BG: ,PAIN: ,GCS: , 09:44,BP: 149/91 M,PULSE: 131,RR: 20 R,SPO2: 93 Ox,ETCO2: ,BG: ,PAIN: 0,GCS: 15, 09:46,BP: / M,PULSE: 132,RR: R,SPO2: Ox,ETCO2: ,BG: ,PAIN: ,GCS: , 09:47,Depart Scene [facility] [address] [place] [address] EMS Patient Care Report Name: BHAVNA STRONG Room #: CINDY Reed#: [id number] Admission: 03/16/21 Attend Phys: Discharge: 03/16/21 Date of : 84 Report #: [id number] 09:58,At Destination 09:58,BP: 144/88 M,PULSE: 112,RR: 18 R,SPO2: 93 Ox,ETCO2: ,BG: ,PAIN: 0,GCS: 15, 10:17,Call Closed Disclaimer v1.1 Copyright 2020 [employer] This EMS Care Summary contains data elements from the applicable legal record (which may be displayed differently). It is designed to provide pertinent information for the following purposes: continuity of care, clinical quality, and state data reporting. The complete legal record is available to ED staff and administrators of the receiving hospital in [employer]'s Patient Tracker. All data is provided "as is."
[~2021-03-16 10:06] MED LIST changes: +BUSPIRONE HCL15 MG PO; +PROLASTIN1000 MG/20 IV
[2021-03-16 10:45] LABS: HEMATOCRIT 41.4 % (42.0-52.0); HEMOGLOBIN 14.2 gm/dL (14.0-18.0); MCH 31.1 pg (26.0-34.0); MCHC 34.3 g/dL (28.0-37.0); MCV 90.6 fL (80.0-100.0); PLATELET COUNT 210 thou/uL (150-400); RBC 4.57 mil/uL (4.50-6.00); RDW 15.2 % (10.5-14.5)
[2021-03-16 11:05] LABS: CALCIUM 8.9 mg/dL (8.5-10.1); CREATININE 0.8 mg/dL (0.7-1.3); POTASSIUM 3.6 mmol/L (3.5-5.1)
[2021-03-16 11:13] LABS: ALBUMIN 3.5 g/dL (3.4-5.0); TOTAL PROTEIN 6.8 g/dL (6.4-8.2)
[2021-03-16 11:47] LABS: ABSOLUTE NEUTROPHILS 8.3 thou/uL (1.4-8.2)
[2021-03-16 11:48] LABS: ANISOCYTOSIS 1+
[2021-03-16] MEDS ORDERED: ATIVAN1 M1 PO (11:53)
[2021-03-16 11:54] VITALS: BP 132/95
--- NOTE | 2021-03-17 15:14 | EKG ---
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
== END 2021-03-16 11:54 | disposition home or self-care (01) ==
LOC: ER 10:06
PROVIDERS: Emergency Medicine
DX: F41.9 Anxiety disorder, unspecified (principal); F10.239 Alcohol dependence with withdrawal, unspecified; Y90.9 Presence of alcohol in blood, level not specified; K21.9 Gastro-esophageal reflux disease without esophagitis; J44.9 Chronic obstructive pulmonary disease, unspecified; I10 Essential (primary) hypertension; F32.9 Major depressive disorder, single episode, unspecified; F17.210 Nicotine dependence, cigarettes, uncomplicated; Z79.899 Other long term (current) drug therapy

== ENCOUNTER 2021-04-29 01:27 | Emergency (ER) | payer OTHER ==
[~2021-04-29] VITALS: Ht 193 cm; Wt 82.9 kg
[2021-04-29 01:57] LABS: BASOPHILS 0.5 % (0.0-2.0); EOSINOPHILS 0.4 % (0.0-3.0); HEMATOCRIT 46.6 % (42.0-52.0); HEMOGLOBIN 15.6 gm/dL (14.0-18.0); LYMPHOCYTES 15.7 % (24.0-44.0); MCH 31.3 pg (26.0-34.0); MCHC 33.5 g/dL (28.0-37.0); MCV 93.3 fL (80.0-100.0); PLATELET COUNT 198 thou/uL (150-400); POLYS 77.4 % (36.0-66.0); RDW 14.3 % (10.5-14.5); WBC 12.9 thou/uL (4.0-11.0)
[2021-04-29 02:04] LABS: ANION GAP 14 mmol/L (7-16); BUN 10 mg/dL (7-18); CALCIUM 8.7 mg/dL (8.5-10.1); CHLORIDE 103 mmol/L (98-107); CO2 20 mmol/L (21-32); GLUCOSE 103 mg/dL (74-106); POTASSIUM 3.4 mmol/L (3.5-5.1); SODIUM 137 mmol/L (136-145)
[2021-04-29 02:15] LABS: LIPASE 52 U/L (73-393); SGOT 19 U/L (15-37); SGPT 16 U/L (16-63); TOTAL BILIRUBIN 0.3 mg/dL (0.2-1.0); TOTAL PROTEIN 7.1 g/dL (6.4-8.2)
[2021-04-29 02:28] VITALS: BP 113/76
--- NOTE | 2021-04-29 08:22 | EKG ---
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 : 1980 Requested By: Steven Carlisle Order Number: [id number] MD: Javier Cheema Measurements Intervals [place] Rate: 147 P: 75 [place]: 90 QRS: 83 QRSD: 84 T: -66 QT: 325 QTc: 509 Interpretive Statements Sinus tachycardia Poor R wave progression Prolonged QT interval Compared to ECG 03/16/2021 10:24:08 Poor R wave progression is now present Electronically Signed On 04-29-2021 8:22:26 LEAD NETWORK ARCHITECT by Javier Cheema [email or web address] <ELECTRONICALLY SIGNED> By: Javier Cheema MD, [facility] 04/29/21 0822 0135 0135 Javier Cheema MD, FACC /EPI
== END 2021-04-29 03:15 | disposition home or self-care (01) ==
LOC: ER 01:27
PROVIDERS: Emergency Medicine
DX: F41.9 Anxiety disorder, unspecified (principal); R00.0 Tachycardia, unspecified; F17.210 Nicotine dependence, cigarettes, uncomplicated; K21.9 Gastro-esophageal reflux disease without esophagitis; J44.9 Chronic obstructive pulmonary disease, unspecified; I10 Essential (primary) hypertension; F32.9 Major depressive disorder, single episode, unspecified; Z87.442 Personal history of urinary calculi; Z79.899 Other long term (current) drug therapy; Z99.81 Dependence on supplemental oxygen

== ENCOUNTER 2021-06-29 21:32 | Emergency (ER) | payer OTHER ==
[~2021-06-29] VITALS: Ht 193 cm; Wt 90.7 kg
--- NOTE | ~2021-06-29 | EMS ---
[place] [address] EMS Patient Care Report Name: BHAVNA STRONG Room #: DEP MAE Reed#: [id number] Admission: 06/29/21 Attend Phys: Discharge: 06/30/21 Date of : 84 Report #: [id number] THIS REPORT FOR: //name// Report Transmitted: 07/01/2021 13:58 EMS Care Summary [place], [place]/[facility] Incident [id number] @ 06/29/2021 21:03 Incident Location [address] [place], [place] [phone] Patient SEAN STRONG Male, 40 Years 1980 Patient Address [address] [place], [place] [phone] Patient History Other,Chronic Obstructive Pulmonary Disease (COPD),Depression,Anxiety,Alcohol Abuse, Patient Allergies No known allergies, Patient Medications Ventolin, Other, Xanax, Colace, Oxygen, Chief Complaint ETOH WITHDRAWAL Disposition Transported No Lights/[place] Dispatch Reason Sick Person Transported To [facility] Narrative UPON ARRIVAL WE FOUND OUR 40 YEAR OLD MALE PATIENT, WITH A HX OF COPD AND ETOH ABUSE, SITTING ON THE COUCH IN THE FRONT ROOM OF A RESIDENCE COMPLAINING OF ETOH WITHDRAWAL SYMPTOMS INCLUDING ANXIETY, N/V, AND TREMORS. THE PATIENT [place] [id number] EMS Patient Care Report Name: BHAVNA STRONG Room #: DEP LachelleRamona#: [id number] Admission: 06/29/21 Attend Phys: Discharge: 06/30/21 Date of : 84 Report #: [id number] STATES HE QUIT DRRINKING COLD TURKEY 2 DAYS AGO AFTER A 2 WEEK RELAPSE OF CONSUMING A FIFTH OF VODKA PER DAY. THE PATIENT REQUESTS TRANSPORT TO [facility] FOR EVALUATION. Initial Vitals @21:20P: 118,R: 18,BP: 174/105,Pain: 0/10,GCS: 15,SpO2: 96,Revised Trauma: 12, @21:28P: 116,R: 18,BP: 170/110,Pain: 0/10,GCS: 15,SpO2: 96,Revised Trauma: 12, Assessments @21:14MENTAL:Other,Time Oriented,Event Oriented,Person Oriented,Place Oriented,SKIN:HEENT:Eyes: Right Pupil: 4-mm,Eyes: Left Pupil: 4-mm,Head/Face: No Abnormalities,Neck/Airway: No Abnormalities,LUNG SOUNDS:General: No Abnormalities,ABDOMEN:General: No Abnormalities,PELVIS//GI:No Abnormalities,EXTREMITIES:Left Arm: No Abnormalities,Right Arm: No Abnormalities,Left Leg: No Abnormalities,Right Leg: No Abnormalities,PULSE:Radial: 2+ Normal,NEURO:Tremors, Impression Alcohol dependence with withdrawal Procedures @21:14 ALS Assessment Response: UnchangedSucceeded @21:15 Oxygen FlowRate: 2 Device: Nasal Cannula (NC) Response: UnchangedSucceeded Timeline 21:02,Call Received 21:02,Dispatch Notified 21:03,Dispatched 21:05,En Route 21:12,On Scene 21:14,At Patient 21:14,ALS Assessment,Response: UnchangedSucceeded, 21:15,Oxygen FlowRate: 2 Device: Nasal Cannula (NC) Response: UnchangedSucceeded, 21:18,Depart Scene 21:20,BP: 174/105 M,PULSE: 118,RR: 18 R,SPO2: 96 Ox,ETCO2: ,BG: ,PAIN: 0,GCS: 15, 21:28,BP: 170/110 M,PULSE: 116,RR: 18 R,SPO2: 96 Ox,ETCO2: ,BG: ,PAIN: 0,GCS: 15, 21:29,At Destination 21:39,Call Closed Disclaimer v1.1 Copyright 2021 [employer], [address] [address] EMS Patient Care Report Name: BHAVNA STRONG [facility] [id number] Admission: 06/29/21 Attend Phys: Discharge: 06/30/21 Date of : 84 Report #: [id number] This EMS Care Summary contains data elements from the applicable legal record (which may be displayed differently). It is designed to provide pertinent information for the following purposes: continuity of care, clinical quality, and state data reporting. The complete legal record is available to ED staff and administrators of the receiving hospital in [employer]'s Patient Tracker. All data is provided "as is."
[2021-06-29 22:28] LABS: ABSOLUTE NEUTROPHILS 12.5 thou/uL (1.4-8.2); BASOPHILS 0.5 % (0.0-2.0); EOSINOPHILS 0.7 % (0.0-3.0); HEMATOCRIT 49.6 % (42.0-52.0); HEMOGLOBIN 16.9 gm/dL (14.0-18.0); MCH 30.3 pg (26.0-34.0); MCHC 34.1 g/dL (28.0-37.0); MCV 88.9 fL (80.0-100.0); MONOCYTES 8.9 % (1.0-8.0); PLATELET COUNT 276 thou/uL (150-400); POLYS 76.9 % (36.0-66.0); RBC 5.58 mil/uL (4.50-6.00); RDW 13.5 % (10.5-14.5); WBC 16.3 thou/uL (4.0-11.0)
[2021-06-29 22:39] LABS: CALCIUM 8.7 mg/dL (8.5-10.1); CREATININE 0.9 mg/dL (0.7-1.3); POTASSIUM 3.7 mmol/L (3.5-5.1)
[2021-06-29 22:47] LABS: ALBUMIN 4.2 g/dL (3.4-5.0); DIRECT BILIRUBIN 0.2 mg/dL (<0.1-0.2); TOTAL BILIRUBIN 0.8 mg/dL (0.2-1.0)
[2021-06-30 03:26] LABS: URINE BLOOD NEGATIVE (Negative); URINE CLARITY CLEAR; URINE COLOR YELLOW; URINE GLUCOSE-RANDOM* NEGATIVE (Negative); URINE KETONES 3+ (Negative); URINE LEUKOCYTES-REFLEX NEGATIVE (Negative); URINE NITRITE-REFLEX NEGATIVE (Negative); URINE PROTEIN (DIPSTICK) NEGATIVE (Negative)
[2021-06-30 04:13] LABS: ICTOTEST (BILI CONFIRMATORY) Positive (Negative); URINE BILIRUBIN 1+ (Negative); URINE REDUCING SUBSTANCE 0 %
[2021-06-30] MEDS ORDERED: ATIVAN1 M1 PO (05:24)
[2021-06-30 06:24] VITALS: BP 116/72
== END 2021-06-30 03:45 | disposition home or self-care (01) ==
LOC: ER 21:32
PROVIDERS: Nurse Practitioner
DX: F10.230 Alcohol dependence with withdrawal, uncomplicated (principal); K21.9 Gastro-esophageal reflux disease without esophagitis; I10 Essential (primary) hypertension; F32.9 Major depressive disorder, single episode, unspecified; F41.9 Anxiety disorder, unspecified; F17.210 Nicotine dependence, cigarettes, uncomplicated; Z79.899 Other long term (current) drug therapy

== ENCOUNTER 2021-07-02 22:32 | Emergency (ER) | payer OTHER ==
[~2021-07-02] VITALS: Ht 193 cm; Wt 90.7 kg
--- NOTE | ~2021-07-02 | EMS ---
[address] [address] EMS Patient Care Report Name: BHAVNA STRONG Room #: DEP MAE Reed#: [id number] Admission: 07/02/21 Attend Phys: Discharge: 07/03/21 Date of : 84 Report #: [id number] THIS REPORT FOR: //name// Report Transmitted: 07/03/2021 09:34 EMS Care Summary [place], [place]/[facility] Incident [id number] @ 07/02/2021 22:02 Incident Location [address] [place], [place] [id number] Patient SEAN STRONG Male, 40 Years 1980 Patient Address [address] [place], [place] [id number] Patient History Other,Chronic Obstructive Pulmonary Disease (COPD),Depression,Anxiety,Alcohol Abuse, Patient Allergies No known allergies, Patient Medications Oxygen, Ventolin, Colace, Xanax, Other, Chief Complaint COUGH, FEVER, WEAKNESS Disposition Transported No Lights/[place] Dispatch Reason Breathing Problem Transported To [facility] Narrative UPON ARRIVAL WE FOUND OUR 40 YEAR OLD MALE PATIENT, WITH A HX OF COPD AND ETOH ABUSE, SITTING IN THE FRONT ROOM OF A RESIDENCE COMPLAINING OF A COUGH, FEVER, CONGESTION, AND GENERALIZED WEAKNESS X 3 DAYS. THE PATIENT HAS ONLY HAD 1 [facility] [address] [place] [address] EMS Patient Care Report Name: BHAVNA STRONG Room #: DEP [facility]#: [id number] Admission: 07/02/21 Attend Phys: Discharge: 07/03/21 Date of : 84 Report #: [id number] PFIZER COVID VACCINE, BUT HE HAS HAD NO KNOWN COVID EXPOSURES. THE PATIENT REQUESTS TRANSPORT TO [facility] FOR EVALUATION. Initial Vitals @22:13P: 118,R: 18,BP: 121/88,Pain: 0/10,GCS: 15,SpO2: 96,Revised Trauma: 12,SC Suspected: false @22:28P: 100,R: 20,BP: 122/80,Pain: 0/10,GCS: 15,SpO2: 95,Revised Trauma: 12,SC Suspected: false Assessments @22:10MENTAL:Other,Place Oriented,Event Oriented,Time Oriented,Person Oriented,SKIN:Hot,HEENT:Eyes: Right Pupil: 4-mm,Eyes: Left Pupil: 4-mm,Head/Face: No Abnormalities,Neck/Airway: No Abnormalities,LUNG SOUNDS:General: No Abnormalities,ABDOMEN:General: No Abnormalities,PELVIS//GI:No Abnormalities,EXTREMITIES:Left Arm: No Abnormalities,Right Arm: No Abnormalities,Left Leg: No Abnormalities,Right Leg: No Abnormalities,PULSE:Radial: 2+ Normal,NEURO:No Abnormalities, Impression Generalized Weakness Procedures @22:10 ALS Assessment Response: UnchangedSucceeded @22:13 3-Lead ECG Response: UnchangedSucceeded @22:11 Oxygen FlowRate: 4 Device: Nasal Cannula (NC) Response: UnchangedSucceeded Timeline 22:01,Call Received 22:01,Dispatch Notified 22:02,Dispatched 22:03,En Route 22:08,On Scene 22:10,At Patient 22:10,ALS Assessment,Response: UnchangedSucceeded, 22:11,Oxygen FlowRate: 4 Device: Nasal Cannula (NC) Response: UnchangedSucceeded, 22:13,3-Lead ECG,Response: UnchangedSucceeded, 22:13,BP: 121/88 M,PULSE: 118,RR: 18 R,SPO2: 96 Ox,ETCO2: ,BG: ,PAIN: 0,GCS: 15, 22:14,Depart Scene 22:27,At Destination 22:28,BP: 122/80 M,PULSE: 100,RR: 20 R,SPO2: 95 Ox,ETCO2: ,BG: ,PAIN: 0,GCS: 15, 22:40,Call Closed [facility] [address] [place] [address] EMS Patient Care Report Name: STRONGBHAVNA [facility] [id number] Admission: 07/02/21 Attend Phys: Discharge: 07/03/21 Date of : 84 Report #: [id number] Disclaimer v1.1 Copyright 2021 [employer] This EMS Care Summary contains data elements from the applicable legal record (which may be displayed differently). It is designed to provide pertinent information for the following purposes: continuity of care, clinical quality, and state data reporting. The complete legal record is available to ED staff and administrators of the receiving hospital in [facility]'s Patient Tracker. All data is provided "as is."
[2021-07-03 00:11] LABS: ABSOLUTE NEUTROPHILS 7.1 thou/uL (1.4-8.2); BASOPHILS 0.7 % (0.0-2.0); EOSINOPHILS 0.6 % (0.0-3.0); HEMATOCRIT 44.2 % (42.0-52.0); HEMOGLOBIN 14.8 gm/dL (14.0-18.0); LYMPHOCYTES 18.3 % (24.0-44.0); MCH 30.5 pg (26.0-34.0); MCHC 33.5 g/dL (28.0-37.0); MCV 91.2 fL (80.0-100.0); MONOCYTES 6.7 % (1.0-8.0); PLATELET COUNT 205 thou/uL (150-400); POLYS 73.7 % (36.0-66.0); RBC 4.84 mil/uL (4.50-6.00); RDW 13.5 % (10.5-14.5); WBC 9.6 thou/uL (4.0-11.0)
[2021-07-03 00:13] LABS: CALCIUM 8.4 mg/dL (8.5-10.1); CREATININE 0.8 mg/dL (0.7-1.3); POTASSIUM 3.6 mmol/L (3.5-5.1)
[2021-07-03] MEDS ORDERED: ALBUTEROL2.5 MG/31 INH (00:49)
[2021-07-03 02:47] VITALS: BP 114/85
--- NOTE | 2021-07-03 08:01 | EKG ---
[place] [id number] [address] [facility] [place] [address] ELECTROCARDIOGRAM REPORT Name: BHAVNA STRONG [facility] [id number] Admission: 07/02/21 Attend Phys: Discharge: 07/03/21 Date of : 84 Report #: [id number] 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1980 Requested By: Elio Govea Order Number: [id number] MD: Javier Cheema Measurements Intervals [place] Rate: 90 P: 77 DC: 157 QRS: 88 QRSD: 90 T: 84 QT: 369 QTc: 452 Interpretive Statements Sinus rhythm Poor R wave progression Compared to ECG 04/29/2021 01:35:15 Sinus tachycardia no longer present Prolonged QT interval no longer present Electronically Signed On 07-03-2021 8:01:05 RELATIONS MANAGER by Javier Cheema [email or web address] <ELECTRONICALLY SIGNED> By: Javier Cheema MD, [facility] 07/03/21800 0035 0035 Javier Cheema MD, FACC /EPI
== END 2021-07-03 02:50 | disposition home or self-care (01) ==
LOC: ER 22:32
PROVIDERS: Emergency Medicine
DX: J44.1 Chronic obstructive pulmonary disease with (acute) exacerbation (principal); Z20.822 Contact with and (suspected) exposure to COVID-19; F17.210 Nicotine dependence, cigarettes, uncomplicated; K21.9 Gastro-esophageal reflux disease without esophagitis; I10 Essential (primary) hypertension; F10.10 Alcohol abuse, uncomplicated; J44.9 Chronic obstructive pulmonary disease, unspecified; Z87.442 Personal history of urinary calculi

== ENCOUNTER 2021-07-14 01:04 | Emergency (ER) | payer OTHER ==
[~2021-07-14] VITALS: Ht 177.8 cm; Wt 79.7 kg
--- NOTE | ~2021-07-14 | EMS ---
[place] [address] EMS Patient Care Report Name: BHAVNA STRONG Room #: DEP MAE Reed#: [id number] Admission: 07/14/21 Attend Phys: Discharge: 07/14/21 Date of : 84 Report #: [id number] THIS REPORT FOR: //name// Report Transmitted: 07/15/2021 11:12 EMS Care Summary [place], [place]/[facility] Incident [id number] @ 07/14/2021 00:31 Incident Location [address] [place], [place] [id number] Patient SEAN STRONG Male, 40 Years 1980 Patient Address [address] [place], [place] [id number] Patient History Other,Chronic Obstructive Pulmonary Disease (COPD),Depression,Anxiety,Alcohol Abuse, Patient Allergies No known allergies, Patient Medications Colace, Oxygen, Other, Ventolin, Xanax, Chief Complaint copd Disposition Transported No Lights/[place] Dispatch Reason Breathing Problem Transported To [facility] Narrative EMS arrived on scene to find a 40 y/o male complaining of soa. The pt had a hx of COPD. The pt stated that he took a home breathing treatment to no effect. Pt was tripoding, had difficulty speaking, had audible wheezing [place] [address] EMS Patient Care Report Name: BHAVNA STRONG Room #: DEP [facility]#: [id number] Admission: 07/14/21 Attend Phys: Discharge: 07/14/21 Date of : 84 Report #: [id number] labored respirations. Pt was given a nebulizer treatment. This did not significantly help pt, he was placed on a CPAP and the nebulizer attached. The pt stated that this did improve his breathing. Pt vitals monitored. Pt vitals stable. Pt condition improved en route. Pt care transferred. Initial Vitals @00:51P: 139,SpO2: 86, @00:59P: 134,SpO2: 94, @00:52P: 133,BP: 198/110,SpO2: 94, @01:00P: 129,R: 30,BP: 174/111,SpO2: 94, @00:48P: 128,R: 28,SpO2: 91, @00:37P: 134,R: 30,Pain: 0/10,GCS: 15,CO: 3,SpO2: 92, Assessments @00:36MENTAL:Event Oriented,Place Oriented,Person Oriented,Time Oriented,SKIN:Hot,HEENT:Head/Face: No Abnormalities,Neck/Airway: No Abnormalities,LUNG SOUNDS:General: No Abnormalities,ABDOMEN:General: No Abnormalities,PELVIS//GI:No Abnormalities,EXTREMITIES:Left Arm: No Abnormalities,Right Arm: No Abnormalities,Left Leg: No Abnormalities,Right Leg: No Abnormalities,PULSE:Radial: 2+ Normal,NEURO:No Abnormalities,@01:14MENTAL:SKIN:HEENT:LUNG SOUNDS:ABDOMEN:PELVIS//GI:EXTREMITIES:PULSE:NEURO: Impression Acute Respiratory Distress (Dyspnea) Procedures @00:36 ALS Assessment Response: UnchangedSucceeded @00:37 Albuterol - 2.5 Milligrams (mg) - Nebulized Response: Improved @00:37 Atrovent - 0.5 Milligrams (mg) - Nebulized Response: Improved @00:48 CPAP FlowRate: 10 Response: ImprovedSucceeded @00:52 IV Therapy - Saline Lock 3cc (20 ga) Site: Antecubital-Left Response: UnchangedSucceeded @01:00 Solu-Medrol - 125 Milligrams (mg) - Intravenous (IV) Response: Improved Timeline 00:29,Call Received 00:29,Dispatch Notified 00:31,Dispatched 00:32,En Route 00:35,On Scene 00:36,At Patient 00:36,ALS Assessment,Response: UnchangedSucceeded, 00:37,Albuterol - 2.5 Milligrams (mg) - Nebulized,Response: Improved 00:37,Atrovent - 0.5 Milligrams (mg) - Nebulized,Response: Improved [facility] [address] [place] [address] EMS Patient Care Report Name: BHAVNA STRONG Room #: [facility] MAE Reed#: [id number] Admission: 07/14/21 Attend Phys: Discharge: 07/14/21 Date of : 84 Report #: [id number] 00:37,BP: / M,PULSE: 134,RR: 30 R,SPO2: 92 Ox,ETCO2: ,BG: ,PAIN: 0,GCS: 15, 00:48,CPAP FlowRate: 10 Response: ImprovedSucceeded, 00:48,BP: / M,PULSE: 128,RR: 28 R,SPO2: 91 Ox,ETCO2: ,BG: ,PAIN: ,GCS: , 00:51,BP: / M,PULSE: 139,RR: R,SPO2: 86 Ox,ETCO2: ,BG: ,PAIN: ,GCS: , 00:52,IV Therapy - Saline Lock 3cc 20 ga Site: Antecubital-Left,Response: UnchangedSucceeded, 00:52,BP: 198/110 M,PULSE: 133,RR: R,SPO2: 94 Ox,ETCO2: ,BG: ,PAIN: ,GCS: , 00:54,Depart Scene 00:59,BP: / M,PULSE: 134,RR: R,SPO2: 94 Ox,ETCO2: ,BG: ,PAIN: ,GCS: , 01:00,Solu-Medrol - 125 Milligrams (mg) - Intravenous (IV),Response: Improved 01:00,BP: 174/111 M,PULSE: 129,RR: 30 R,SPO2: 94 Ox,ETCO2: ,BG: ,PAIN: ,GCS: , 01:01,At Destination 01:21,Call Closed Disclaimer v1.1 Copyright 2021 [employer] This EMS Care Summary contains data elements from the applicable legal record (which may be displayed differently). It is designed to provide pertinent information for the following purposes: continuity of care, clinical quality, and state data reporting. The complete legal record is available to ED staff and administrators of the receiving hospital in [employer]'s Patient Tracker. All data is provided "as is."
--- NOTE | ~2021-07-14 | EMS ---
[place] [id number] EMS Patient Care Report Name: BHAVNA STRONG Room #: DEP MAE Reed#: [id number] Admission: 07/14/21 Attend Phys: Discharge: 07/14/21 Date of : 84 Report #: [id number] THIS REPORT FOR: //name// Report Transmitted: 07/16/2021 16:19 EMS Care Summary [place], [place]/[facility] Incident [id number] @ 07/14/2021 00:31 Incident Location [address] [place], [place] [phone] Patient SEAN STRONG Male, 40 Years 1980 Patient Address [address] [place], [place] [phone] Patient History Other,Chronic Obstructive Pulmonary Disease (COPD),Depression,Anxiety,Alcohol Abuse, Patient Allergies No known allergies, Patient Medications Colace, Oxygen, Other, Ventolin, Xanax, Chief Complaint copd Disposition Transported No Lights/[place] Dispatch Reason Breathing Problem Transported To [facility] Narrative EMS arrived on scene to find a 40 y/o male complaining of soa. The pt had a hx of COPD. The pt stated that he took a home breathing treatment to no effect. Pt was tripoding, had difficulty speaking, had audible [place] [address] EMS Patient Care Report Name: BHAVNA STRONG Room #: [facility]#: [id number] Admission: 07/14/21 Attend Phys: Discharge: 07/14/21 Date of : 84 Report #: [id number] labored respirations. Pt was given a nebulizer treatment. This did not significantly help pt, he was placed on a CPAP and the nebulizer attached. The pt stated that this did improve his breathing. Pt vitals monitored. Pt vitals stable. Pt condition improved en route. Pt care transferred. Initial Vitals @00:51P: 139,SpO2: 86, @00:59P: 134,SpO2: 94, @00:52P: 133,BP: 198/110,SpO2: 94, @01:00P: 129,R: 30,BP: 174/111,SpO2: 94, @00:48P: 128,R: 28,SpO2: 91, @00:37P: 134,R: 30,Pain: 0/10,GCS: 15,CO: 3,SpO2: 92, Assessments @00:36MENTAL:Event Oriented,Place Oriented,Person Oriented,Time Oriented,SKIN:Hot,HEENT:Head/Face: No Abnormalities,Neck/Airway: No Abnormalities,LUNG SOUNDS:General: No Abnormalities,ABDOMEN:General: No Abnormalities,PELVIS//GI:No Abnormalities,EXTREMITIES:Left Arm: No Abnormalities,Right Arm: No Abnormalities,Left Leg: No Abnormalities,Right Leg: No Abnormalities,PULSE:Radial: 2+ Normal,NEURO:No Abnormalities,@01:14MENTAL:SKIN:HEENT:LUNG SOUNDS:ABDOMEN:PELVIS//GI:EXTREMITIES:PULSE:NEURO: Impression Acute Respiratory Distress (Dyspnea) Procedures @00:36 ALS Assessment Response: UnchangedSucceeded @00:37 Albuterol - 2.5 Milligrams (mg) - Nebulized Response: Improved @00:37 Atrovent - 0.5 Milligrams (mg) - Nebulized Response: Improved @00:48 CPAP FlowRate: 10 Response: ImprovedSucceeded @00:52 IV Therapy - Saline Lock 3cc (20 ga) Site: Antecubital-Left Response: UnchangedSucceeded @01:00 Solu-Medrol - 125 Milligrams (mg) - Intravenous (IV) Response: Improved Timeline 00:29,Call Received 00:29,Dispatch Notified 00:31,Dispatched 00:32,En Route 00:35,On Scene 00:36,At Patient 00:36,ALS Assessment,Response: UnchangedSucceeded, 00:37,Albuterol - 2.5 Milligrams (mg) - Nebulized,Response: Improved 00:37,Atrovent - 0.5 Milligrams (mg) - Nebulized,Response: Improved [facility] [address] [place] [address] EMS Patient Care Report Name: BHAVNA STRONG Room #: [facility] MAE Reed#: [id number] Admission: 07/14/21 Attend Phys: Discharge: 07/14/21 Date of : 84 Report #: [id number] 00:37,BP: / M,PULSE: 134,RR: 30 R,SPO2: 92 Ox,ETCO2: ,BG: ,PAIN: 0,GCS: 15, 00:48,CPAP FlowRate: 10 Response: ImprovedSucceeded, 00:48,BP: / M,PULSE: 128,RR: 28 R,SPO2: 91 Ox,ETCO2: ,BG: ,PAIN: ,GCS: , 00:51,BP: / M,PULSE: 139,RR: R,SPO2: 86 Ox,ETCO2: ,BG: ,PAIN: ,GCS: , 00:52,IV Therapy - Saline Lock 3cc 20 ga Site: Antecubital-Left,Response: UnchangedSucceeded, 00:52,BP: 198/110 M,PULSE: 133,RR: R,SPO2: 94 Ox,ETCO2: ,BG: ,PAIN: ,GCS: , 00:54,Depart Scene 00:59,BP: / M,PULSE: 134,RR: R,SPO2: 94 Ox,ETCO2: ,BG: ,PAIN: ,GCS: , 01:00,Solu-Medrol - 125 Milligrams (mg) - Intravenous (IV),Response: Improved 01:00,BP: 174/111 M,PULSE: 129,RR: 30 R,SPO2: 94 Ox,ETCO2: ,BG: ,PAIN: ,GCS: , 01:01,At Destination 01:21,Call Closed Disclaimer v1.1 Copyright 2021 [employer] This EMS Care Summary contains data elements from the applicable legal record (which may be displayed differently). It is designed to provide pertinent information for the following purposes: continuity of care, clinical quality, and state data reporting. The complete legal record is available to ED staff and administrators of the receiving hospital in [employer]'s Patient Tracker. All data is provided "as is."
[~2021-07-14 01:04] MED LIST changes: +ALBUTEROL2.5 MG/31 INH
[2021-07-14 01:21] LABS: HEMATOCRIT 44.6 % (42.0-52.0); MCH 30.9 pg (26.0-34.0); MCHC 33.7 g/dL (28.0-37.0); MCV 91.6 fL (80.0-100.0); PLATELET COUNT 421 thou/uL (150-400); RBC 4.87 mil/uL (4.50-6.00); RDW 13.7 % (10.5-14.5); WBC 21.3 thou/uL (4.0-11.0)
[2021-07-14 01:25] LABS: CALCIUM 8.8 mg/dL (8.5-10.1); CREATININE 1.4 mg/dL (0.7-1.3); POTASSIUM 3.9 mmol/L (3.5-5.1)
[2021-07-14 01:55] LABS: BE(vivo) -4.9 mmol/L (-2 to +3); HCO3 20.1 mmol/L (22.0-26.0); PCO2 37.5 mmHg (35.0-45.0); PO2 176.8 mmHg (80.0-100.0); pH 7.347 (7.360-7.450); sO2 99.1 % (92.0-98.0)
[2021-07-14 02:11] LABS: ABSOLUTE NEUTROPHILS 13.6 thou/uL (1.4-8.2); ATYPICAL LYMPHS 6 %; PLATELET ESTIMATE INCREASED
[2021-07-14 06:36] VITALS: BP 104/64
--- NOTE | 2021-07-14 07:42 | EKG ---
[address] [place] [address] ELECTROCARDIOGRAM REPORT Name: BHAVNA STRONG [facility] [id number] Admission: 07/14/21 Attend Phys: Discharge: 07/14/21 Date of : 84 Report #: [id number] 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1980 Requested By: Cecil Carter Order Number: [id number] MD: Yossi Tucker Measurements Intervals [place] Rate: 135 P: 92 CO: 144 QRS: 90 QRSD: 64 T: -87 QT: 331 QTc: 497 Interpretive Statements Sinus tachycardia Probable left atrial enlargement Borderline right axis deviation Borderline repolarization abnormality Borderline prolonged QT interval Artifact in lead(s) I,II,III,aVR,aVL,aVF,V4,V5,V6 Compared to ECG 07/03/2021 00:35:24 Sinus rhythm no longer present Poor R-wave progression no longer present Electronically Signed On 07-14-2021 7:41:44 GRAPHIC SPECIALIST by Yossi Tucker [email or web address] <ELECTRONICALLY SIGNED> By: Yossi Tucker MD, [facility] 07/14/21 0741 2 2 Yossi Tucker MD, [facility] /EPI
== END 2021-07-14 06:38 | disposition home or self-care (01) ==
LOC: ER 01:04
PROVIDERS: Student in an Organized Health Care Education/Training Program
DX: J44.1 Chronic obstructive pulmonary disease with (acute) exacerbation (principal); Z20.822 Contact with and (suspected) exposure to COVID-19; F17.210 Nicotine dependence, cigarettes, uncomplicated; K21.9 Gastro-esophageal reflux disease without esophagitis; I10 Essential (primary) hypertension; F10.10 Alcohol abuse, uncomplicated; Z87.442 Personal history of urinary calculi